=== PATIENT | male | born 1950 | race Caucasian/White ===

== ENCOUNTER 2019-06-17 05:32 | Inpatient (IN) ==
[2019-06-17] MEDS: SODIUM CHLORIDE 0.9% 1000ML 1,000 ML IV SCH ×3 (06:15→21:32)
--- NOTE | 2019-06-17 06:27 | XRay Report ---
XR chest 1V portable HISTORY: 69 years-old Male ams acute fever with altered mental status COMPARISON: Chest radiograph 07/29/2018 TECHNIQUE: Portable AP view of the chest FINDINGS: Heart is mildly enlarged, unchanged. No pneumothorax, pleural effusion, lobar airspace consolidation or overt pulmonary edema. Mild unchanged likely chronic interstitial coarsening. Healed remote left c lavicular fracture. Mild degenerative changes of the shoulders and spine. IMPRESSION: Cardiomegaly without acute process. The above report was generated using voice recognition software. It may contain grammatical, syntax o r spelling errors. Electronically signed by: Jan Man M.D. 06/17/2019 6:25 AM
[2019-06-17 06:39] LABS: Basophils # (auto) 0.04 K/uL (0-0.2); Basophils % (auto) 0.2 %; Hematocrit (blood only) 34.9 % (42-52); Immature Granulocytes # (auto) 0.15 K/uL (0.00-0.02); Immature Granulocytes % (auto) 0.9 %; Lymphocytes % (auto) 4.3 %; Mean Corpuscular Hgb Conc 37.2 g/dL (32-36); Mean Corpuscular Volume 89.9 fL (80-100); Mean Platelet Volume 9.8 fL (7.4-10.4); Monocytes # (auto) 0.52 K/uL (0.11-0.59); Monocytes % (auto) 3.2 %; Neutrophils # (auto) 14.99 K/uL (1.4-6.5); Neutrophils % (auto) 91.4 %; Platelet Count 229 K/uL (130-400); RDW Coefficient of Variation 12.8 % (11.5-14.5); RDW Standard Deviation 41.7 fL (36.4-46.3); Red Blood Count 3.88 M/uL (4.7-6.1)
--- NOTE | 2019-06-17 06:49 | CT Scan Report ---
CT head/brain wo con CLINICAL HISTORY: 69 years-old Male with ams. Acutely altered mental status TECHNIQUE: Multiple axial CT images of the head were obtained without contrast. A dose lowering tech nique was utilized adhering to the principles of ALARA. CT DOSE: 537.48 mGy.cm COMPARISON: None. FINDINGS: No acute intracranial hemorrhage, midline shift, intracranial mass, hydrocephalus, territorial ischem ia or abnormal extra-axial collection. Mild age-related involutional changes with ex vacuo ventriculo megaly. Cerebral vascular calcifications are noted. Study is mildly motion degraded. Minimal ill-defi elayne white matter hypodensities are suggestive of probable chronic microvascular ischemic changes. The calvarium is intact. Minimal mucosal thickening about the right sphenoid and left ethmoid sinuse s. Mastoid air cells are clear. Soft tissues and orbits appear unremarkable. IMPRESSION: No acute intracranial abnormality. The above report was generated using voice recognition software. It may contain grammatical, syntax o r spelling errors. Electronically signed by: Jan Man M.D. 06/17/2019 6:47 AM
[2019-06-17 06:56] LABS: Alanine Aminotransferase 64 U/L (12-78); Albumin Level 2.8 gm/dl (3.4-5.0); Aspartate Aminotransferase 49 U/L (15-37); BUN Creatinine Ratio 23.1 (10-20); Blood Urea Nitrogen 22 mg/dl (7-18); Calcium 8.8 mg/dl (8.5-10.1); Carbon Dioxide 20 mmol/L (21-32); Chloride 91 mmol/L (98-107); Creatinine Clr Calc Pharmacy 84.7 ml/min; Est GFR (African American) 96.7; Est GFR (Non-African American) 83.5; Glucose 110 mg/dl (70-99); Magnesium 1.6 mg/dl (1.8-2.4); Potassium 3.3 mmol/L (3.5-5.1); Sodium 124 mmol/L (136-145)
[2019-06-17 07:01] LABS: Acetaminophen < 2 ug/ml (10-30); Salicylate 8.1 mg/dl (2.8-20)
[2019-06-17 07:07] LABS: Albumin Globulin Ratio 0.7 (0.9-2); Alkaline Phosphatase 108 U/L (45-117); Bilirubin,Total 0.9 mg/dl (0.2-1); Globulin 4.2 gm/dl (2.5-4.0); Troponin I < 0.015 ng/ml (0-0.045)
[2019-06-17 07:36] LABS: Lyme Ab IgG w/WB Rflx Negative (Negative); Lyme Ab IgM w/WB Rflx Negative (Negative)
[2019-06-17] MEDS ORDERED: MAGNESIUM SULFATE / D5W 1 GM/100 ML BAG IV ONE (07:37)
[2019-06-17 09:39] LABS: Appearance Urine Clear (Clear); Bacteria Urine Automated Negative (Negative); Bilirubin Urine Negative (Negative); Blood Urine Negative (Negative); Color Urine Dark Yellow; Glucose Urine UA Negative (Negative); Ketones Urine 1+ (Negative); Leukocyte Esterase Urine Negative (Negative); Nitrite Urine Negative (Negative); Protein Urine 1+ (Negative); RBC Urine Automated 0-4 /hpf (0-4); Specific Gravity Urine 1.021 (1.000-1.030); Urobilinogen Urine Negative (Negative)
[2019-06-17 10:22] LABS: Amphetamines+Metham, Urine Neg (Neg); Barbiturates, Urine Neg (Neg); Benzodiazepine, Urine Neg (Neg); Cocaine, Urine Neg (Neg); MDMA (Ecstacy), Urine Neg (Neg); Methadone, Urine Neg (Neg); Opiate, Urine Neg (Neg); Phencyclidine, Urine Neg (Neg)
[2019-06-17] MEDS ORDERED: ONDANSETRON INJ 2 MG/ML 2 ML VIAL IV PRN (11:39)
[2019-06-17] MEDS: DOXYCYCLINE HYCLATE 100 MG in DEXTROSE 5% 100 ML IV SCH ×2 (12:32→23:27)
[2019-06-17] MEDS ORDERED: LORazepam 1 MG/2 ML VIAL IV PRN (12:38)
[2019-06-17] MEDS ORDERED: MULTI-VITAMIN INFUSION 10 ML, THIAMINE HCL 100 MG, FOLIC ACID 1 MG in SODIUM CHLORIDE 0... IV SCH (12:45)
[2019-06-17] MEDS ORDERED: METOPROLOL TARTRATE 1 MG/ML VIAL IV PRN (13:03)
[2019-06-17] MEDS ORDERED: VERAPAMIL HCL 120 MG TABCR PO ONE (13:04)
[2019-06-17] MEDS: THIAMINE HCL 100 MG in SYRINGE 9 ML IV SCH (13:11)
--- NOTE | 2019-06-17 13:50 | History & Physical Report ---
Date of Service June 17, 2019 Assessment & Plan (1) Encephalopathy: Concern for metabolic encephalopathy from infectious etiologies such as a tickborne illness. Because his symptoms seem to begin after his tick bite will be started on IV doxycycline while waiting on confirmatory testing for tickborne illnesses. Urine culture and blood cultures are pending. Additional consideration could be toxic encephalopathy from his alcohol possibly withdrawal, Metabolic encephalopathy from hyponatremia, with his random urine sodium being 23, he may have SIADH of unknown stimulus (2) Atrial fibrillation with rapid ventricular response: Patient is a history of atrial fibrillation was actually discharged at one point time on Xarelto. For whatever reason he is refused to take Xarelto was supposed to discuss with his primary care physician. He is in atrial fibrillation at this point time, said vas score is 2 at this point time I will start full dose Lovenox therapy discussed further signs of antic regulation in the future once his medical condition is more stabilized (3) Acute hyponatremia: Patient replaced on a fluid restriction we will follow his sodium for hopefully a very slow rise affect his urine osmolality is elevated and serum osmolality is decreased he did not have significant loom changer time we may involve nephrology (4) Hypertension: Patient typically takes verapamil at bedtime this is an unusual dosage for atrial fibrillation control will maintain this medicine changed to every morning with an augmented dose on 06/17 (5) Electrolyte abnormality: Patient potassium magnesium will be augmented magnesium was given in the emergency department (6) Tick bite: As mentioned the patient did have a tick bite there are pending serologies sent intravenous doxycycline is being administered at this time (7) Alcohol use: Patient does have alcohol use is felt to be mild to moderate by family, his tachycardia ready complexion and make me concern for alcohol withdrawal he will be started on the alcohol withdrawal program protocol however not starting Neurontin at this point time because of the unclear nature of his confusion. We will attempt to control his atrial fibrillation with rate controlling agents if it looks like he persist continues to progress towards more significant alcohol withdrawal we will add Neurontin back (8) DVT prophylaxis: Therapeutic dose Lovenox is used for DVT prevention History of Present Illness Primary Care Provider: Troy Rahman MD 69-year-old male brought to the ER by his after having approximately 10 days of waxing and waning intermittent confusion and low-grade temperatures. The relates that this began shortly after he received tick bite in [place] to his right leg. They then traveled to [place] where they have a vacation home and he had a variable week with low-grade temperatures just feeling poorly and not being himself. This morning he had a fall at home onto his right side was confused had a low-grade temperature was brought to the ER. His initial evaluation and leukocytosis with a white count of 16,000 marked hyponatremia with a sodium of 124 hypokalemia with potassium 3.3 magnesium 1.6 renal function was intact and he did not have a significant anion gap. Screening was negative head CT negative chest x-ray negative. Patient does drink occasional alcohol although family denies is a significant amount. He has had no recent issues with coughs sore throat runny nose earaches headaches neck pain diarrhea nausea vomiting or dysuria. He has complained of some intermittent visual blurriness. Allergies Allergy/AdvReac Type Severity Reaction Status Date / Time amlodipine Allergy RASH & Verified 06/17/19 06:16 SWOLLEN LEGS benazepril Allergy RASH & Verified 06/17/19 06:16 SWOLLEN LEGS--TAKES LISINOPRIL AT HOME shellfish derived Allergy Unknown Verified 06/17/19 06:18 Home Medications Home Medications Medication Instructions Recorded Confirmed Type ascorbic acid (vitamin C) 500 mg PO HS 07/29/18 06/17/19 History aspirin [Aspirin Low Dose] 81 mg PO QAM 07/29/18 06/17/19 History glucosamine-chondroitin 1 dose PO AMPM 07/29/18 06/17/19 History lisinopril-hydrochlorothiazide 1 tab PO HS 07/29/18 06/17/19 History multivitamin [Multiple Vitamins] 1 tab PO QAM 07/29/18 06/17/19 History betamethasone dipropionate 1 applic TOPICAL BID 06/17/19 06/17/19 History verapamil 120 mg PO HS 06/17/19 06/17/19 History vit C-E-zinc [id number] 1 tab PO QAM 06/17/19 06/17/19 History [Ocuvite Eye Health] Past Med/Surg History Family History Father Hypertension Social History Preferred Language: Croatian Communication Ability: Effective Managed Care Liaison Required: No Beliefs That Will Affect Care: None Current Living Situation: Spouse Other Information That Helps Us Care for You: No Feels Safe at Home: Yes Safety Concerns: Feels Safe At This Time Smoking Status: Former smoker Hx Alcohol Use: Yes Alcohol type: beer and wine Hx Substance Use: No Review of Systems Review of Systems: ROS: Patient can hold casual conversation but on confrontational testing does exhibit his confusion No double vision or visual field loss, complains of blurry vision bilaterally No problems with speech or swallowing No palpitations, chest pain or pressure No Wheezing or breathing issues No abdominal pain nausea vomiting diarrhea changes in appetite or weight No burning urine urine frequency or changes in color No focal joint pain or muscle pain This is some discoloration to his bilateral knees question if from bruising No other physical signs of bruising or bleeding No focused back pain or numbness or loss of strength Intermittent confusion Physical Exam Physical Exam: The patient appeared well nourished and normally developed. He is ready complected Vital signs as documented. He developed a tachycardia and is afebrile with rapid ventricular response Head exam is unremarkable. normocephalic, atraumatic Ophthalmologic exam shows bilateral cataracts no large intraocular changes noted Neck is without jugular venous distension, thyromegaly, or lymphademopathy Lungs are clear to auscultation and percussion. Cardiac exam reveals irregular and tachycardic. First and second heart sounds normal. Abdominal exam reveals normal bowel sounds, no masses, no organomegaly Extremities are nonedematous and both pedal pulses are present Neurologic exam is A&Ox2, no focal deficits, strength is equal bilateral Psychologically seems anxious Skin is warm Dry with bruises about his knees bilaterally Results & Data Vital Signs (Past 12 Hours) Vital Signs Temp Pulse Pulse Resp BP BP Pulse Ox 06/17/19 12:11 124 H 06/17/19 12:00 36.8 C 121 H 18 134/82 91 06/17/19 11:39 36.8 C 88 18 134/82 06/17/19 10:52 115 H 20 120/83 99 06/17/19 09:16 104 H 18 123/82 99 06/17/19 07:34 37.1 C 107 H 18 102/72 98 06/17/19 05:48 37.9 C H 110 H 20 129/69 95 Laboratory Results Sodium 124 potassium 3.3 magnesium 1.6 TSH normal, random urine sodium is [address] head is unremarkable for intracranial changes Chest x-ray is without intrathoracic abnormalities with exception of mild cardiomegaly EKG shows atrial fibrillation ventricular rate in the 110-120 range Initial Lyme screen was negative PG Care Time/CCT Total # of Minutes Spent Total Time Spent with Patient: Total time spent is greater than 50% in coordination of care (as documented) at patient's floor/unit and/or counseling patient:
[2019-06-17] MEDS ORDERED: GABAPENTIN 1200MG ALCOHOL WITHDRAWAL LOAD PO STA (15:49)
[2019-06-17] MEDS ORDERED: GABAPENTIN 600 MG TAB PO SCH ×2 (16:30→22:30)
[2019-06-17 17:28] LABS: BUN Creatinine Ratio 19.9 (10-20); Calcium 8.3 mg/dl (8.5-10.1); Creatinine Clr Calc Pharmacy 88.5 ml/min; Est GFR (African American) 101.1; Est GFR (Non-African American) 87.2; Potassium 3.4 mmol/L (3.5-5.1)
[2019-06-17 19:14] LABS: INR 1.4 (0.9-1.1); Partial Thromboplastin Ratio 1.4; Partial Thromboplastin Time 38.1 Seconds (21.0-31.0); Prothrombin Time 13.9 Seconds (9.0-12.0)
[2019-06-17] MEDS ORDERED: ENOXAPARIN 1 MG/KG SQ SCH (20:00)
[2019-06-17] MEDS ORDERED: SODIUM CHLORIDE 0.9% 1000ML 250 ML IV ONE (20:52)
[2019-06-17] MEDS ORDERED: LISINOPRIL/HCTZ 20/25MG 1 TAB PO SCH (21:00)
[2019-06-17] MEDS ORDERED: VERAPAMIL HCL 120 MG TABCR PO SCH (21:00)
[2019-06-17] MEDS: ENOXAPARIN 80 MG/0.8 ML SYR SQ SCH (21:36)
[2019-06-18] MEDS: SODIUM CHLORIDE 0.9% 1000ML 1,000 ML IV SCH ×3 (03:17→20:43)
[2019-06-18 07:14] LABS: Hematocrit (blood only) 33.7 % (42-52); Hemoglobin 11.9 g/dL (14.0-18.0); Mean Corpuscular Hgb Conc 35.3 g/dL (32-36); Mean Corpuscular Volume 91.8 fL (80-100); Mean Platelet Volume 10.8 fL (7.4-10.4); Platelet Count 225 K/uL (130-400); RDW Coefficient of Variation 13.2 % (11.5-14.5); RDW Standard Deviation 44.4 fL (36.4-46.3); Red Blood Count 3.67 M/uL (4.7-6.1); White Blood Count 12.27 K/uL (4.8-10.8)
[2019-06-18 07:48] LABS: BUN Creatinine Ratio 27.4 (10-20); Calcium 8.3 mg/dl (8.5-10.1); Creatinine Clr Calc Pharmacy 89.5 ml/min; Est GFR (African American) 101.6; Est GFR (Non-African American) 87.6; Potassium 3.2 mmol/L (3.5-5.1)
[2019-06-18] MEDS ORDERED: POTASSIUM CHLORIDE 10 MEQ / 100ML WTR IV STA (07:58)
[2019-06-18] MEDS: MAGNESIUM SULFATE / D5W 1 GM/100 ML BAG IV SCH ×2 (08:47→10:00)
[2019-06-18] MEDS: POTASSIUM CHLORIDE / WTR 10 MEQ/100 ML PLCT IV SCH ×3 (08:48→11:11)
[2019-06-18] MEDS: VERAPAMIL HCL 120 MG TABCR PO SCH (08:59)
[2019-06-18] MEDS: ASPIRIN 81 MG ECTAB PO SCH (08:59)
[2019-06-18] MEDS: MULTIVITAMIN TAB PO SCH (09:00)
[2019-06-18] MEDS ORDERED: ENOXAPARIN INJ 40 MG/0.4 ML SYR SQ SCH (09:00)
[2019-06-18] MEDS: POTASSIUM CHLORIDE 20 MEQ TABCR PO SCH ×2 (09:00→20:40)
[2019-06-18] MEDS: THIAMINE HCL 100 MG in SYRINGE 9 ML IV SCH (09:01)
[2019-06-18] MEDS: ENOXAPARIN 80 MG/0.8 ML SYR SQ SCH ×2 (09:03→20:43)
[2019-06-18] MEDS: DOXYCYCLINE HYCLATE 100 MG in DEXTROSE 5% 100 ML IV SCH ×2 (12:18→23:59)
[2019-06-18] MEDS ORDERED: GABAPENTIN 600 MG TAB PO SCH (14:30)
[2019-06-18] MEDS ORDERED: LISINOPRIL 20 MG TAB PO STA (14:39)
--- NOTE | 2019-06-18 14:40 | Hospitalist Progress Note ---
Date of Service June 18, 2019 Assessment & Plan (1) Encephalopathy: initial concern for metabolic encephalopathy from infectious etiologies such as a tickborne illness. Because his symptoms seem to begin after his tick bite he was started on doxycycline while waiting on confirmatory testing for tickborne illnesses. Urine culture and blood cultures are pending. He has had dramatic improvement over the first 24 hours Additional consideration could be toxic encephalopathy from his alcohol possibly withdrawal, he had untoward side effect to gabapentin this was now stopped Metabolic encephalopathy from hyponatremia, with his random urine sodium being 23, he may have SIADH which could be estimated by his infection. His sodium has increased to 129 his mental status is improved dramatically (2) Atrial fibrillation with rapid ventricular response: Patient is a history of atrial fibrillation was actually discharged at one point time on Xarelto. For whatever reason he is refused to take Xarelto was supposed to discuss with his primary care physician. He is in atrial fibrillation at this point time, Long vas score is 2 he was started on full dose Lovenox therapy His verapamil was changed to the morning dosing time (3) Acute hyponatremia: Patient sodium is improved he will remain on fluid restriction (4) Hypertension: Patient's antihypertensives will be transition to morning his diuretic will be stopped (5) Electrolyte abnormality: Patient potassium magnesium continue to require augmentation (6) Tick bite: As mentioned the patient did have a tick bite there are pending serologies sent intravenous doxycycline is being administered at this time (7) Alcohol use: Patient does have significant alcohol use however given his untoward side effect of Neurontin he will be only with PRN lorazepam dosing is markedly clear not tremulous or anxious on 06/18 (8) DVT prophylaxis: Therapeutic dose Lovenox is used for DVT prevention Subjective this pt is markedly improved, he has returned to intact mental status. no fevers, did have some side affects to elevated doses of gabapentin Review of Systems Review of Systems: ROS: well nourished well developed. No double vision blurry vision No problems with speech or swallowing No palpitations, chest pain or pressure No Wheezing or breathing issues No abdominal pain nausea vomiting diarrhea changes in appetite or weight No burning urine urine frequency or changes in color No focal joint pain or muscle pain He is a very ready complexion and discoloration of his lower legs No unusual bruising or bleeding No focused back pain or numbness or loss of strength No changes in memory or confusion Physical Exam Physical Exam: The patient appeared well nourished and normally developed. Vital signs as documented. Head exam is unremarkable. normocephalic, atraumatic Neck is without jugular venous distension, thyromegaly, or lymphademopathy Lungs are clear to auscultation and percussion. Cardiac exam reveals Rhythm is regular. First and second heart sounds normal. Abdominal exam reveals normal bowel sounds, no masses, no organomegaly Extremities are nonedematous and both pedal pulses are present Neurologic exam is A&Ox3, no focal deficits, strength is equal bilateral Psychologically seems neither anxious or depressed Skin is warm Dry without bruises or lesions Results & Data Vital Signs (Past 12 Hours) Vital Signs Temp Pulse Pulse Resp BP Pulse Ox 06/18/19 11:46 36.5 C 94 H 18 126/83 98 06/18/19 07:54 56 L 06/18/19 07:15 36.5 C 83 16 115/74 100 06/18/19 03:20 36.4 C L 74 16 120/81 93 PG Care Time/CCT Total # of Minutes Spent Total Time Spent with Patient: Total time spent is greater than 50% in coordination of care (as documented) at patient's floor/unit and/or counseling patient:
[2019-06-18] MEDS ORDERED: COUGH DROP (SUGAR FREE) LOZ 24 LOZ/1 BOX BUCCAL PRN (20:27)
--- NOTE | 2019-06-18 23:11 | Emergency Department Note ---
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 He complains of intermittent fevers over the past month. The patient complains of a cough and a decreased appetite. He denies any diarrhea, SOB, nausea/vomiting, abdominal pain, headache, chest pain, SOB, dizziness, and lightheadedness. The patient reports that he was taken off of Metoprolol and switched to Verapamil by his PCP about a month ago. Pt states he did sustain a recent tick bite but hasn't noticed any rash. No recent travel, no sick contacts. States no hx of being immunocompromised. States his fevers have been as high as 103 at home but then go away. When asked about atrial fibrillation as was seen on tele monitor, pt states he has had that prior but doesn't know if he is always in a.fib or not. Pt states he takes ASA daily, no other anticoagulation. Denies any palpitations or sense of racing at this time. Home Medications Home Medications Medication Instructions Recorded Confirmed Type ascorbic acid (vitamin C) 500 mg PO 07/29/18 06/17/19 History aspirin [Aspirin Low Dose] 81 mg PO QAM 07/29/18 06/17/19 History glucosamine-chondroitin 1 dose PO AMPM 07/29/18 06/17/19 History lisinopril-hydrochlorothiazide 1 tab PO 07/29/18 06/17/19 History multivitamin [Multiple Vitamins] 1 tab PO QAM 07/29/18 06/17/19 History betamethasone dipropionate 1 applic TOPICAL BID 06/17/19 06/17/19 History verapamil 120 mg PO 06/17/19 06/17/19 History vit C-E-zinc [id number] 1 tab PO QAM 06/17/19 06/17/19 History [[facility]] Allergies Allergy/AdvReac Type Severity Reaction Status Date / Time amlodipine Allergy RASH & Verified 06/17/19 06:16 SWOLLEN LEGS benazepril Allergy RASH & Verified 06/17/19 06:16 SWOLLEN LEGS--TAKES LISINOPRIL AT HOME shellfish derived Allergy Unknown Verified 06/17/19 06:18 Past Med/Surg History Family History Father Hypertension Social History Preferred Language: Mongolian Communication Ability: Effective Hip Hop Performers Required: No Beliefs That Will Affect Care: None Current Living Situation: Spouse Other Information That Helps Us Care for You: No Feels Safe at Home: Yes Safety Concerns: Feels Safe At This Time Smoking Status: Former smoker Hx Alcohol Use: Yes Alcohol type: beer and wine Hx Substance Use: No Review of Systems See HPI for pertinent positives & negatives. Other (HPI limited secondary to altered mental status.) Physical Exam Vital Signs Vital Signs - 24 hr 06/17/19 05:48 Temperature 100.2 F H Temperature Source Oral Sepsis Recent Fever Within 48 Hours Yes Sepsis New/Unexplained Change in Mental Status Yes Sepsis Action Taken by Nursing No Action Required Pulse Rate 110 H Respiratory Rate 20 Blood Pressure 129/69 Blood Pressure Mean 89 Pulse Oximetry 95 Oxygen Delivery Method Room Air GENERAL: alert, well appearing, well nourished, no distress, non-toxic EYE EXAM: normal conjunctiva, PERRL and EOM's grossly intact, no nystagmus OROPHARYNX: no exudate, no erythema, lips, buccal mucosa, and tongue normal and mucous membranes are mildly dry NECK: supple, no nuchal rigidity, no adenopathy, non-tender LUNGS: Clear to auscultation. Normal chest wall mechanics, no w/r/r HEART: no murmurs, S1 normal and S2 normal. Tachycardic and irregular rate at 112. Appear to be A-fib on telemetry. ABDOMEN: abdomen soft, non-tender, normo-active bowel sounds, no masses, no rebound or guarding. BACK: Back is symmetrical on inspection and there is no deformity, no midline tenderness, no CVA tenderness. SKIN: no rashes and no bruising, no petechaie UPPER EXTREMITIES: upper extremities are grossly normal. FROM, nml pulses b/l, no joint effusion. LOWER EXTREMITIES: No pitting edema. FROM, nml pulses b/l, no joint effusion. NEURO EXAM: Normal sensorium, cranial nerves II-XII grossly intact, normal speech, no gross weakness of arms, no gross weakness of legs. The patient was aware of his location, the current President, and the month, but not the year. No facial droop, no ataxia. Course 0537: The patient was evaluated in room B10. A complete history and physical exam was performed. 0715: Pt and updated on all results and we discussed additional inpatient tx needed. Pt was hesitant to agree to this and states "I'm not a good patient" and nods in agreement. 0730: Case discussed with Dr. Hancock for inpt mgmt. UA still pending at this time. Administered Medications Aspirin (Ecotrin Ectab) 81 mg PO QAM TOMMIE Stop: 07/18/19 08:59 Last Admin: 06/18/19 08:59 Dose: 81 mg Documented by: [id number] Enoxaparin Sodium (Lovenox) 80 mg SQ Q12H TOMMIE Stop: 07/17/19 20:29 Last Admin: 06/18/19 20:43 Dose: Not Given Documented by: [id number] Admin: 06/18/19 09:03 Dose: Not Given Documented by: [id number] Admin: 06/17/19 21:36 Dose: 80 mg Documented by: [id number] Sodium Chloride (Nss 1000ml) 1,000 mls @ 125 mls/hr IV .Q8H TOMMIE Stop: 07/17/19 05:44 Last Admin: 06/18/19 20:43 Dose: 125 mls/hr Documented by: [id number] Infusion: 06/18/19 20:18 Dose: 125 mls/hr Documented by: [id number] Admin: 06/18/19 12:18 Dose: 125 mls/hr Documented by: [id number] Infusion: 06/18/19 11:17 Dose: 125 mls/hr Documented by: [id number] Admin: 06/18/19 03:17 Dose: 125 mls/hr Documented by: [id number] Infusion: 06/18/19 03:17 Dose: 125 mls/hr Documented by: [id number] Admin: 06/17/19 21:32 Dose: 125 mls/hr Documented by: [id number] Infusion: 06/17/19 21:32 Dose: 125 mls/hr Documented by: [id number] Admin: 06/17/19 11:47 Dose: 125 mls/hr Documented by: [id number] Infusion: 06/17/19 11:47 Dose: 125 mls/hr Documented by: [id number] Admin: 06/17/19 06:15 Dose: 125 mls/hr Documented by: [id number] Doxycycline Hyclate 100 mg/ (Dextrose) 110 mls @ 50 mls/hr IV Q12H [facility] Stop: 07/01/19 11:59 Last Infusion: 06/18/19 14:33 Dose: 0 mls/hr Documented by: [id number] Admin: 06/18/19 12:18 Dose: 50 mls/hr Documented by: [id number] Infusion: 06/18/19 01:48 Dose: 0 mls/hr Documented by: [id number] Admin: 06/17/19 23:27 Dose: 50 mls/hr Documented by: [id number] Infusion: 06/17/19 16:51 Dose: 0 mls/hr Documented by: [id number] Admin: 06/17/19 12:32 Dose: 50 mls/hr Documented by: [id number] Thiamine HCl 100 mg/ Syringe 10 mls @ 2 mls/hr IV DAILY [facility] Stop: 07/17/19 12:37 Last Admin: 06/18/19 09:01 Dose: 2 mls/hr Documented by: [id number] Admin: 06/17/19 13:11 Dose: 2 mls/hr Documented by: [id number] Menthol (Nice) 1 cristina BUCCAL NOW PRN PRN Reason: Cough Stop: 07/18/19 20:26 Last Admin: 06/18/19 20:39 Dose: 1 cristina Documented by: [id number] Metoprolol Tartrate (Lopressor) 5 mg IV Q4 PRN PRN Reason: sbp> 185, dbp >95, HR >120 Stop: 07/17/19 13:02 Last Admin: 06/17/19 13:40 Dose: 5 mg Documented by: [id number] Multivitamins (Multivitamin Tab) 1 tab PO QAM [facility] Stop: 07/18/19 08:59 Last Admin: 06/18/19 09:00 Dose: 1 tab Documented by: [id number] Potassium Chloride (Klor-Con M20) 20 meq PO BID [facility] Stop: 06/19/19 09:01 Last Admin: 06/18/19 20:40 Dose: 20 meq Documented by: [id number] Admin: 06/18/19 09:00 Dose: 20 meq Documented by: [id number] Verapamil HCl (Calan Sr) 120 mg PO DAILY [facility] Stop: 07/18/19 08:59 Last Admin: 06/18/19 08:59 Dose: 120 mg Documented by: [id number] Discontinued Medications Gabapentin (Neurontin) 1,200 mg PO TODAY@1630 [facility] Stop: 06/17/19 16:31 Last Admin: 06/17/19 16:55 Dose: 1,200 mg Documented by: [id number] Gabapentin (Neurontin) 600 mg PO Q6H [facility] Last Admin: 06/17/19 21:31 Dose: Not Given Documented by: [id number] Lisinopril/HCTZ (Prinzide 20/25mg) 1 tab PO HS [facility] Stop: 07/17/19 20:59 Last Admin: 06/17/19 21:30 Dose: Not Given Documented by: [id number] Magnesium Sulfate/Dextrose (Magnesium Sulfate / D5w) 1 gm in 100 mls @ 100 mls/hr IV ONE ONE Stop: 06/17/19 08:36 Last Infusion: 06/17/19 09:16 Dose: 0 mls/hr Documented by: [id number] Admin: 06/17/19 08:11 Dose: 100 mls/hr Documented by: [id number] Multivitamins 10 ml/ Thiamine HCl 100 mg/ Folic Acid 1 mg/Sodium Chloride 1,011.2 mls @ 500 mls/hr IV .Q2H2M [facility]OMMIE Stop: 06/17/19 14:46 Last Infusion: 06/17/19 15:37 Dose: 0 mls/hr Documented by: [id number] Admin: 06/17/19 13:11 Dose: 500 mls/hr Documented by: [id number] Sodium Chloride (Nss 1000ml) 250 mls @ 999 mls/hr IV .Q16M ONE Stop: 06/17/19 21:07 Last Infusion: 06/17/19 21:48 Dose: 0 mls/hr Documented by: [id number] Admin: 06/17/19 21:20 Dose: 999 mls/hr Documented by: [id number] Magnesium Sulfate/Dextrose (Magnesium Sulfate / D5w) 1 gm in 100 mls @ 100 mls/hr IV Q1H [facility]OM[facility] Stop: 06/18/19 10:29 Last Infusion: 06/18/19 11:11 Dose: 0 mls/hr Documented by: [id number] Admin: 06/18/19 10:00 Dose: 100 mls/hr Documented by: [id number] Infusion: 06/18/19 09:47 Dose: 100 mls/hr Documented by: [id number] Admin: 06/18/19 08:47 Dose: 100 mls/hr Documented by: [id number] Potassium Chloride (K Tavo / Wtr) 10 meq in 100 mls @ 100 mls/hr IV Q1H [facility]OM[facility]E Stop: 06/18/19 11:44 Last Infusion: 06/18/19 12:19 Dose: 0 mls/hr Documented by: [id number] Admin: 06/18/19 11:11 Dose: 100 mls/hr Documented by: [id number] Infusion: 06/18/19 11:00 Dose: 100 mls/hr Documented by: [id number] Admin: 06/18/19 10:00 Dose: 100 mls/hr Documented by: [id number] Infusion: 06/18/19 09:48 Dose: 100 mls/hr Documented by: [id number] Admin: 06/18/19 08:48 Dose: 100 mls/hr Documented by: [id number] Lisinopril (Zestril) 20 mg PO NOW STA Stop: 06/18/19 14:40 Last Admin: 06/18/19 17:01 Dose: 20 mg Documented by: [id number] Potassium Chloride (K Tavo / Wtr) 10 meq IV UD STA Stop: 06/18/19 07:59 Last Admin: 06/18/19 11:11 Dose: Not Given Documented by: [id number] Verapamil HCl (Calan Sr) 120 mg PO ONE ONE Stop: 06/17/19 13:05 Last Admin: 06/17/19 13:40 Dose: 120 mg Documented by: [id number] Medical Decision Making Differential Diagnosis Differential diagnoses includes but is not limited to toxic, metabolic, infectious, traumatic, cardiac, neurologic, hematologic, psychiatric and inflamm atory etiologies. Medical Records Attestation: I reviewed the patient's medical records. Home Medications Current Medication List: was personally reviewed by me Laboratory Data Attestation: I reviewed the patient's lab results. Result diagrams: 06/18/19 06:25 06/18/19 06:25 Lab Results 06/17/19 06/17/19 06/17/19 Range/Units 06:19 06:19 06:19 WBC 16.40 H (4.8-10.8) K/uL RBC 3.88 L (4.7-6.1) M/uL Hgb 13.0 L (14.0-18.0) g/dL Hct 34.9 L (42-52) % MCV 89.9 (80-100) fL MCH 33.5 (25-34) pg MCHC 37.2 H (32-36) g/dL RDW Std Deviation 41.7 (36.4-46.3) fL RDW Coeff of Melissa 12.8 (11.5-14.5) % Plt Count 229 (130-400) K/uL MPV 9.8 (7.4-10.4) fL Immature Gran % (Auto) 0.9 % Neut % (Auto) 91.4 % Lymph % (Auto) 4.3 % Potter % (Auto) 3.2 % Eos % (Auto) 0.0 % Baso % (Auto) 0.2 % Immature Gran # (Auto) 0.15 H (0.00-0.02) K/uL Neut # (Auto) 14.99 H (1.4-6.5) K/uL Lymph # (Auto) 0.70 L (1.2-3.4) K/uL Potter # (Auto) 0.52 (0.11-0.59) K/uL Eos # (Auto) 0.00 (0-0.5) K/uL Baso # (Auto) 0.04 (0-0.2) K/uL Absolute Nucleated RBC 0.00 (0-0) K/uL Nucleated RBC % (auto) 0.0 % Peripher Smr Path Cons Sodium 124 L (136-145) mmol/L Potassium 3.3 L (3.5-5.1) mmol/L Chloride 91 L (98-107) mmol/L Carbon Dioxide 20 L (21-32) mmol/L Anion Gap 12.0 H (3-11) BUN 22 H (7-18) mg/dl Creatinine 0.93 (0.6-1.4) mg/dl Est Cr Clr Drug Dosing 84.7 ml/min Est GFR ( Amer) 96.7 Est GFR (Non-Af Amer) 83.5 BUN/Creatinine Ratio 23.1 H (10-20) Glucose 110 H (70-99) mg/dl POC Glucose (70-99) Osmolality (280-300) mOsm/kg POC Lactic Acid Adrien (0.90-1.70) mmol/L Calcium 8.8 (8.5-10.1) mg/dl Magnesium 1.6 L (1.8-2.4) mg/dl Total Bilirubin 0.9 (0.2-1) mg/dl AST 49 H (15-37) U/L ALT 64 (12-78) U/L Alkaline Phosphatase 108 (45-117) U/L Ammonia 34.0 H (11-32) umol/L Troponin I < 0.015 (0-0.045) ng/ml Total Protein 7.0 (6.4-8.2) gm/dl Albumin 2.8 L (3.4-5.0) gm/dl Globulin 4.2 H (2.5-4.0) gm/dl Albumin/Globulin Ratio 0.7 L (0.9-2) Lipase 78 (73-393) U/L TSH 1.650 (0.300-4.500) uIu/ml Salicylates (2.8-20) mg/dl Acetaminophen (10-30) ug/ml Ethyl Alcohol mg/dL (0-3) mg/dl Lyme Disease IgG Ab (Negative) Lyme Disease IgM Ab (Negative) 06/17/19 06/17/19 06/17/19 Range/Units 06:19 06:19 06:19 WBC (4.8-10.8) K/uL RBC (4.7-6.1) M/uL Hgb (14.0-18.0) g/dL Hct (42-52) % MCV (80-100) fL MCH (25-34) pg MCHC (32-36) g/dL RDW Std Deviation (36.4-46.3) fL RDW Coeff of Melissa (11.5-14.5) % Plt Count (130-400) K/uL MPV (7.4-10.4) fL Immature Gran % (Auto) % Neut % (Auto) % Lymph % (Auto) % Potter % (Auto) % Eos % (Auto) % Baso % (Auto) % Immature Gran # (Auto) (0.00-0.02) K/uL Neut # (Auto) (1.4-6.5) K/uL Lymph # (Auto) (1.2-3.4) K/uL Potter # (Auto) (0.11-0.59) K/uL Eos # (Auto) (0-0.5) K/uL Baso # (Auto) (0-0.2) K/uL Absolute Nucleated RBC (0-0) K/uL Nucleated RBC % (auto) % Peripher Smr Path Cons Sodium (136-145) mmol/L Potassium (3.5-5.1) mmol/L Chloride (98-107) mmol/L Carbon Dioxide (21-32) mmol/L Anion Gap (3-11) BUN (7-18) mg/dl Creatinine (0.6-1.4) mg/dl Est Cr Clr Drug Dosing ml/min Est GFR ( Amer) Est GFR (Non-Af Amer) BUN/Creatinine Ratio (10-20) Glucose (70-99) mg/dl POC Glucose (70-99) Osmolality (280-300) mOsm/kg POC Lactic Acid Adrien (0.90-1.70) mmol/L Calcium (8.5-10.1) mg/dl Magnesium (1.8-2.4) mg/dl Total Bilirubin (0.2-1) mg/dl AST (15-37) U/L ALT (12-78) U/L Alkaline Phosphatase (45-117) U/L Ammonia (11-32) umol/L Troponin I (0-0.045) ng/ml Total Protein (6.4-8.2) gm/dl Albumin (3.4-5.0) gm/dl Globulin (2.5-4.0) gm/dl Albumin/Globulin Ratio (0.9-2) Lipase (73-393) U/L TSH (0.300-4.500) uIu/ml Salicylates 8.1 (2.8-20) mg/dl Acetaminophen < 2 L (10-30) ug/ml Ethyl Alcohol mg/dL < 3.0 (0-3) mg/dl Lyme Disease IgG Ab Negative (Negative) Lyme Disease IgM Ab Negative (Negative) 06/17/19 06/17/19 06/17/19 Range/Units 06:19 06:20 06:22 WBC (4.8-10.8) K/uL RBC (4.7-6.1) M/uL Hgb (14.0-18.0) g/dL Hct (42-52) % MCV (80-100) fL MCH (25-34) pg MCHC (32-36) g/dL RDW Std Deviation (36.4-46.3) fL RDW Coeff of Melissa (11.5-14.5) % Plt Count (130-400) K/uL MPV (7.4-10.4) fL Immature Gran % (Auto) % Neut % (Auto) % Lymph % (Auto) % Potter % (Auto) % Eos % (Auto) % Baso % (Auto) % Immature Gran # (Auto) (0.00-0.02) K/uL Neut # (Auto) (1.4-6.5) K/uL Lymph # (Auto) (1.2-3.4) K/uL Potter # (Auto) (0.11-0.59) K/uL Eos # (Auto) (0-0.5) K/uL Baso # (Auto) (0-0.2) K/uL Absolute Nucleated RBC (0-0) K/uL Nucleated RBC % (auto) % Peripher Smr Path Cons Sodium (136-145) mmol/L Potassium (3.5-5.1) mmol/L Chloride (98-107) mmol/L Carbon Dioxide (21-32) mmol/L Anion Gap (3-11) BUN (7-18) mg/dl Creatinine (0.6-1.4) mg/dl Est Cr Clr Drug Dosing ml/min Est GFR ( Amer) Est GFR (Non-Af Amer) BUN/Creatinine Ratio (10-20) Glucose (70-99) mg/dl POC Glucose 118 H (70-99) Osmolality 254 L (280-300) mOsm/kg POC Lactic Acid Adrien 0.86 L (0.90-1.70) mmol/L Calcium (8.5-10.1) mg/dl Magnesium (1.8-2.4) mg/dl Total Bilirubin (0.2-1) mg/dl AST (15-37) U/L ALT (12-78) U/L Alkaline Phosphatase (45-117) U/L Ammonia (11-32) umol/L Troponin I (0-0.045) ng/ml Total Protein (6.4-8.2) gm/dl Albumin (3.4-5.0) gm/dl Globulin (2.5-4.0) gm/dl Albumin/Globulin Ratio (0.9-2) Lipase (73-393) U/L TSH (0.300-4.500) uIu/ml Salicylates (2.8-20) mg/dl Acetaminophen (10-30) ug/ml Ethyl Alcohol mg/dL (0-3) mg/dl Lyme Disease IgG Ab (Negative) Lyme Disease IgM Ab (Negative) Imaging Data Attestation: I personally reviewed and interpreted this imaging study as follows: My Impression: XR CHEST 1V: No cardiomegaly. No wide mediastinum. No focal consolidation. No pleural effusio n. No acute pulmonary edema. Radiologist's Impression: Radiology results as stated below per my review and the radiologist's interpretation: ECG Data Attestation: I personally reviewed and interpreted this ECG as follows: Indication: altered mental status Rate (beats per minute): 110 Rhythm: atrial fibrillation Findings: + other (normal axis, normal QRS and QTC); no ST elevation Blood Pressure Blood Pressure Findings: Normal blood pressure Blood Pressure Disposition: did not require urgent referral MDM Narrative Pt here with intermittent FUO without clear etiology. Pt does admit to recent tick bite, no hx of Lyme, initial Lyme test here negative. Ehrlichia is a send out lab, and lab results otherwise not strongly suggestive of anaplasmosis. Fever seems unrelated to recent medication change. Pt found to have a.fib with RVR which appears new, unknown onset. Given pt takes only baby ASA, slightly increased risk of TIA/CVA also. Ct head negative. Rate improved with IVF given initially for mild clinical dehydration. Hyponatremia noted. This was seen previously on review of EMR, however no clear etiology was identified. Pt afebrile here and only question he was confused on was date/time. Given lack of fever here, I discussed with them possible consideration for meningitis/encephalitis, but did not feel it warranted emergent LP at this time given other possibilities that needed further investigation. Pt hemodynamically stable throughout. All results and possible ddx discussed with pt and at bedside. No other evidence of acute infectious etiology, cxr unremarkable, no GI symptoms, no URI symptoms, UA pending at time of discussed with hospitalist but no recent symptoms. No hx of rheumatologic dz, malignancy, or HIV. No evidence of bacteremia/sepsis. Impression & Plan Fever of unknown origin (FUO), Atrial fibrillation with rapid ventricular response, Tick bite, Acute hyponatremia, Leukocytosis, Confusion, Hypokalemia Discharge Plan Visit Data *Final* Discharge Date/Time: 06/17/19 11:06 Chief Complaint: Altered Mental Status Stated Complaint: altered mental status ED Provider: Michelle Figueroa Discharge Problem: Fever of unknown origin (FUO), Atrial fibrillation with rapid ventricular response, Tick bite, Acute hyponatremia, Leukocytosis, Confusion, Hypokalemia Patient Disposition: Admitted As Inpatient Discharge Instructions Interventions: ED Discharge Assessment Last Done: 06/17/19 11:06 Discharge Problem: Tick bite Qualifiers: Encounter type: initial encounter Qualified Code(s): W57.XXXA - Bitten or stung by nonvenomous insect and other nonvenomous arthropods, initial encounter Leukocytosis Qualifiers: Leukocytosis type: unspecified Qualified Code(s): D72.829 - Elevated white blood cell count, unspecified The scribe's documentation has been prepared under my direction and personally reviewed by me in its entirety. I confirm that the note above accurately reflects all work, treatment, procedures, and medical decision making performed by me.
[2019-06-19] MEDS: SODIUM CHLORIDE 0.9% 1000ML 1,000 ML IV SCH (04:13)
[2019-06-19 06:28] LABS: Hematocrit (blood only) 33.5 % (42-52); Hemoglobin 11.7 g/dL (14.0-18.0); Mean Corpuscular Hgb Conc 34.9 g/dL (32-36); Mean Corpuscular Volume 93.6 fL (80-100); Mean Platelet Volume 10.5 fL (7.4-10.4); Platelet Count 250 K/uL (130-400); RDW Coefficient of Variation 13.1 % (11.5-14.5); RDW Standard Deviation 45.2 fL (36.4-46.3); Red Blood Count 3.58 M/uL (4.7-6.1); White Blood Count 8.59 K/uL (4.8-10.8)
[2019-06-19 07:11] LABS: BUN Creatinine Ratio 24.1 (10-20); Calcium 8.4 mg/dl (8.5-10.1); Creatinine Clr Calc Pharmacy 90.6 ml/min; Est GFR (African American) 102.1; Est GFR (Non-African American) 88.1; Potassium 3.7 mmol/L (3.5-5.1)
[2019-06-19] MEDS: MULTIVITAMIN TAB PO SCH (08:43)
[2019-06-19] MEDS: VERAPAMIL HCL 120 MG TABCR PO SCH (08:44)
[2019-06-19] MEDS: ENOXAPARIN 80 MG/0.8 ML SYR SQ SCH (08:44)
[2019-06-19] MEDS: ASPIRIN 81 MG ECTAB PO SCH (08:44)
[2019-06-19] MEDS: POTASSIUM CHLORIDE 20 MEQ TABCR PO SCH (08:45)
[2019-06-19] MEDS: THIAMINE HCL 100 MG in SYRINGE 9 ML IV SCH (08:45)
[2019-06-19] MEDS ORDERED: LISINOPRIL 20 MG TAB PO SCH (09:00)
[2019-06-19] MEDS ORDERED: GABAPENTIN 600 MG TAB PO SCH (18:30)
--- NOTE | 2019-06-19 18:53 | Discharge Summary ---
Date of Service June 19, 2019 Admission HPI Per Admitting Provider 69-year-old male brought to the ER by his after having approximately 10 days of waxing and waning intermittent confusion and low-grade temperatures. The relates that this began shortly after he received tick bite in [place] to his right leg. They then traveled to [place] where they have a vacation home and he had a variable week with low-grade temperatures just feeling poorly and not being himself. This morning he had a fall at home onto his right side was confused had a low-grade temperature was brought to the ER. His initial evaluation and leukocytosis with a white count of 16,000 marked hyp onatremia with a sodium of 124 hypokalemia with potassium 3.3 magnesium 1.6 renal function was intact and he did not have a significant anion gap. Screening was negative head CT negative chest x-ray negative. Patient does drink occasional alcohol although family denies is a significant amount. He has had no recent issues with coughs sore throat runny nose earaches headaches neck pain diarrhea nausea vomiting or dysuria. He has complained of some intermittent visual blurriness. Principal Diagnosis hyponatremia possible tic borne illness metabolic encephalopathy Discharge Exam Constitutional well developed and average body habitus Eyes no conjunctival abnormality and no scleral abnormality Neck normal visual inspection and trachea midline Respiratory normal respiratory effort; no respiratory distress Auscultation: lungs clear to auscultation bilaterally Cardiovascular RRR, no murmur, no edema Gastrointestinal (Abdomen) normal bowel sounds, soft, nontender, no hepatosplenomegaly Musculoskeletal no cyanosis or clubbing, extremities motor strength 5/5 Discharge Data Allergies Allergy/AdvReac Type Severity Reaction Status Date / Time amlodipine Allergy RASH & Verified 06/17/19 06:16 SWOLLEN LEGS benazepril Allergy RASH & Verified 06/17/19 06:16 SWOLLEN LEGS--TAKES LISINOPRIL AT HOME shellfish derived Allergy Unknown Verified 06/17/19 06:18 Consultations 06/17/19 08:17 ED Decision to Admit Stat Ordered Studies 06/17/19 05:45 CT head/brain wo con Stat Hospital Course (1) Encephalopathy: initial concern for metabolic encephalopathy from infectious etiologies such as a tickborne illness. Because his symptoms seem to begin after his tick bite he was started on doxycycline and will continue as an outpt while waiting on confirmatory testing for tickborne illnesses. Urine culture and blood cultures are negative at time of dishcarge He has had dramatic improvement over the first 24 hours Additional consideration could be toxic encephalopathy from his alcohol possibly withdrawal, he had untoward side effect to gabapentin this was now stopped, he relates to not drinking in excess over the last few weeks Metabolic encephalopathy from hyponatremia, with his random urine sodium being 23, he may have SIADH which could be estimated by his infection. His sodium has increased to 129 his mental status is improved dramatically (2) Atrial fibrillation with rapid ventricular response: Patient is a history of atrial fibrillation was actually discharged at one point time on Xarelto. For whatever reason he is refused to take Xarelto was supposed to discuss with his primary care physician. He is in atrial fibrillation at this point time, Long vas score is 2 he was started on full dose Lovenox therapy, he is not interested in pursing full dose anticoagulation at this time further discussion with his pcp His verapamil was changed to the morning dosing time (3) Acute hyponatremia: Patient sodium is improved he was counselled on avoiding free water excess (4) Hypertension: Patient's antihypertensives continue (5) Electrolyte abnormality: Patient potassium magnesium replete (6) Tick bite: As mentioned the patient did have a tick bite there are pending serologies sent intravenous doxycycline is being administered at this time (7) Alcohol use: Patient does have significant alcohol use however given his untoward side effect of Neurontin he will be only with PRN lorazepam dosing is markedly clear not tremulous or anxious on 06/18 Total Time Total Time Spent Total Time Spent (In Minutes): greater than 30 minutes were required to prepare discharge Discharge Plan Discharge Items Patient Disposition: Home - Self-Care Reason For Visit: ENCEPALOPATHY Discharge Diagnosis: low sodium level possible tic bite exposure Discharge Goals: Decrease discomfort Activity: Resume your previous activity Non-emergency contact: Primary Care Provider Call non-emergency contact if: you have any medication questions Follow-up/Referrals: Troy Rahman MD [Primary Care Provider] - 06/24/19 8:30 am (Please, follow up at Dr. Douglas Rahman's office with his associate, Dr. Lockett, on MondayJune 24 at 8:30 am. *If you need to change this appointment, call the office at [phone]. ) Diet: Regular Addtl Provider Instructions: please drink plenty of fluids, avoid excess plain water intake. limit alcohol intake to one or two servings a day please follow up with Dr Rahman's office within one week. Prescriptions: New doxycycline monohydrate 100 mg capsule 100 mg PO BID 10 Days Qty: 20 RF: 0 Continued ascorbic acid (vitamin C) 500 mg Capsule 500 mg PO HS RF: 0 multivitamin [Multiple Vitamins] Tablet 1 tab PO QAM RF: 0 aspirin [Aspirin Low Dose] 81 mg Tablet,Delayed Release (Dr/Ec) 81 mg PO QAM RF: 0 lisinopril-hydrochlorothiazide 20-25 mg Tablet 1 tab PO DAILY RF: 0 glucosamine-chondroitin 1,500-1,200 mg/30 mL Liquid 1 dose PO AMPM RF: 0 verapamil 120 mg tablet extended release 120 mg PO DAILY RF: 0 betamethasone dipropionate 0.05 % lotion 1 applic topical BID RF: 0 Ocuvite [facility] 50 mg-15 unit- 4.5 mg-2.5 mg Tablet,Chewable 1 tab PO QAM RF: 0 Stand-Alone Forms: [facility] Discharge Orders: Discharge Order (Routine); Ordered 06/19/19 Ordered By: Nate Hancock Admission Data Admit Date/Time: 06/17/19 09:17 Attending Provider: Nate Hancock Admit Provider: Nate Hancock Primary Care Provider: Troy Rahman Other Providers: Nate Hancock Service: Telemetry Other Interventions: Discharge Summary Assessment (RN) Last Done: 06/19/19 11:31 DC Date/Time DO NOT enter until pt leaves facility: 06/19/19 12:10
[2019-06-19 19:00] LABS: Albumin 2.6 G/DL (3.8-4.8); Alpha 1 Globulin 0.5 G/DL (0.2-0.3); Alpha 2 Globulin 0.7 G/DL (0.5-0.9); Beta-1-Globulin 0.4 G/DL (0.4-0.6); Beta-2-Globulin 0.4 G/DL (0.2-0.5); Gamma Globulin 1.1 G/DL (0.8-1.7); Monoclonal Protein Band 1 0.5 G/DL (NOT DETECTED); Monoclonal Protein Band 2 DNR G/DL (NOT DETECTED); Monoclonal Protein Band 3 DNR G/DL (NOT DETECTED); Total Protein 5.7 G/DL (6.2-8.3)
[2019-06-19 21:28] LABS: Ehrlichia chaff IgG Ab <1:64 (<1:64); Ehrlichia chaff IgM Ab <1:20 (<1:20)
[2019-06-21] MEDS ORDERED: GABAPENTIN 600 MG TAB PO SCH (06:30)
[2019-06-21 11:36] LABS: Creatinine Ur 84 MG/DL (20-320); Protein, Urine Random 41 MG/DL (5-25); Urine Protein/Creatinine Ratio 488 (22-128)
== END 2019-06-19 12:10 | disposition home or self-care (01) | DRG 71 ==
LOC: ED 05:32 → 2N 09:17

== ENCOUNTER 2021-06-25 07:25 | Inpatient (IN) ==
[2021-06-25] MEDS ORDERED: SODIUM CHLORIDE 0.9% 1000ML 1,000 ML IV STA (08:16)
[2021-06-25] MEDS ORDERED: CEFEPIME 2,000 MG/20 ML VIAL IV STA (08:16)
[2021-06-25] MEDS ORDERED: VANCOMYCIN CONSULT ACTIVE PRN ×2 (08:16→15:25)
[2021-06-25] MEDS ORDERED: VANCOMYCIN HCL 2,250 MG in SODIUM CHLORIDE 0.9% 500 ML IV ONE (08:18)
[2021-06-25 08:50] LABS: Basophils # (auto) 0.03 K/uL (0-0.2); Basophils % (auto) 0.2 %; Eosinophils # (auto) 0.15 K/uL (0-0.5); Eosinophils % (auto) 1.2 %; Hematocrit (blood only) 45.3 % (42-52); Immature Granulocytes # (auto) 0.03 K/uL (0.00-0.02); Immature Granulocytes % (auto) 0.2 %; Lymphocytes # (auto) 0.93 K/uL (1.2-3.4); Lymphocytes % (auto) 7.3 %; Mean Corpuscular Hemoglobin 33.9 pg (25-34); Mean Corpuscular Hgb Conc 35.3 g/dL (32-36); Mean Platelet Volume 10.4 fL (7.4-10.4); Monocytes # (auto) 0.93 K/uL (0.11-0.59); Monocytes % (auto) 7.3 %; Neutrophils # (auto) 10.66 K/uL (1.4-6.5); Neutrophils % (auto) 83.8 %; Platelet Count 267 K/uL (130-400); RDW Coefficient of Variation 13.9 % (11.5-14.5); RDW Standard Deviation 48.9 fL (36.4-46.3); Red Blood Count 4.72 M/uL (4.7-6.1); White Blood Count 12.73 K/uL (4.8-10.8)
[2021-06-25 08:58] LABS: INR 1.1 (0.9-1.1); Prothrombin Time 10.9 Seconds (9.0-12.0)
[2021-06-25 09:06] LABS: Albumin Level 4.1 gm/dl (3.4-5.0); BUN Creatinine Ratio 11.9 (10-20); Calcium 9.6 mg/dl (8.5-10.1); Creatinine Clr Calc Pharmacy 57.8 ml/min; Est GFR (African American) 69.4 ml/min; Est GFR (Non-African American) 59.9 ml/min; Potassium 4.1 mmol/L (3.5-5.1)
[2021-06-25 09:09] LABS: Globulin 3.9 gm/dl (2.5-4.0)
--- NOTE | 2021-06-25 09:55 | Ultrasound Report ---
US venous doppler UE LT CLINICAL HISTORY: cellulitis, swelling, r/o DVT COMPARISON STUDY: No previous studies for comparison. TECHNIQUE: Sonography of the deep venous system of the left upper extremity was performed FINDINGS: The left internal jugular, subclavian, axillary, brachial, basilic, radial and ulnar veins are patent. IMPRESSION: No deep venous thrombus within the left upper extremity. ACT 112: Negative or not required by law. Electronically signed by: Cristian Javier M.D. 06/25/2021 9:53 AM
--- NOTE | 2021-06-25 09:58 | Electrocardiogram Report ---
Test Reason : Blood Pressure : / mmHG Vent. Rate : 097 BPM Atrial Rate : 084 BPM P-R Int : 000 ms QRS Dur : 090 ms QT Int : 388 ms P-R-T Axes : 000 060 -29 degrees QTc Int : 492 ms Atrial fibrillation Diffuse Minor Nonspecific ST and T wave abnormality Abnormal ECG When compared with ECG of 17-JUN-2019 05:40, No significant change Confirmed by Brian Mckeon ([id number]) on 06/25/2021 9:58:22 AM Referred By: Troy Rahman Confirmed By:Brian Mckeon
--- NOTE | 2021-06-25 11:07 | History & Physical Report ---
Date of Service June 25, 2021 Assessment & Plan (1) Cellulitis: Plan: Cellulitis with edema to left upper extremity- non-purulence - Received 2-3 days of Bactrim and Doxy as outpatient- hold - Continue Cefepime and Vancomycin- follow clinical response in 24 hours - CRP, ESR, PCT pending - Lactate negative - not systemically septic - crosses the elbow joint but no effect on movement and no effusion (2) Alcohol use: Plan: 3-4 beers per day- has gone 3 days without drinking prior without difficulty - AAWS Ativan coverage (3) Hypertension: Plan: Cotnrolled - Continue Lisinopril - follow renal function (4) Atrial fibrillation with rapid ventricular response: Plan: Chads VASC 1 continues on ASA - Has only been on Xeralto short time prior to 2019 admisison - Patient says he bleeds too much on the aspirin as it is. - rate controlled asymptomatic (5) Hyponatremia: Plan: Chronic likely related to potomania - follow while in house - do not feel this is related to his infection at this time History of Present Illness Primary Care Provider: Troy Rahman MD 71 YOM with past medical history: HTN, TICK bite, ETOH use, metabolic encephalopathy (2019), afib (on ASA). Patient comes to the emergency room today for worsening of his left arm cellulitis. Patient originally injured his arm with abrasions and ecchymosis after hitting it on the back of the chair on [id number]. Patient was keeping the area clean and dry and returned back to his PCP on 28July for erythema and increase in swelling to the hand. He was then started on Doxycyline and Bactrim as well as a wound culture obtained at that time. The erythema was tracking up his arm to just above the elbow, where it was marked by his PCP and may have slight extension past that today. His wound culture reported by the office has NGTD as the prelim. His hand he states started to swell after walking in the [place] on [place] and getting a mosquito bite at that time. He endorses that this is not abnormal for him to have localized reaction like that to a bit. The hand has 3+ edema soft. In the EMD he had a venous ultrasound done to this arm which is negative for clot. He was started on Vancomycin and Cefepime in the EMD. Had blood cultures drawn. Hosptialist team was notified for admission. Patient will be admitted to medical floor and continue IV antibiotics and follow clinical course with cultures. X-rays ordered, CRP, ESR, and CKMB. Patient has had his COVID vaccine and COVID test is negative on admission. Allergies Allergy/AdvReac Type Severity Reaction Status Date / Time amlodipine Allergy RASH & Verified 06/25/21 08:53 SWOLLEN LEGS benazepril Allergy RASH & Verified 06/25/21 08:53 SWOLLEN LEGS--TAKES LISINOPRIL AT HOME Home Medications Medication Instructions Recorded Confirmed Type ascorbic acid (vitamin C) 500 mg 500 mg PO BID 07/29/18 06/25/21 History capsule aspirin 81 mg tablet,delayed 81 mg PO HS 07/29/18 06/25/21 History release (Aspirin Low Dose) glucosamine-chondroitin 1,500 mg 1 dose PO BID 07/29/18 06/25/21 History -1,200 mg/30 mL oral liquid multivitamin (Multiple Vitamins) 1 tab PO QAM 07/29/18 06/25/21 History vit C 50 mg-E 15 unit-zinc cit 4.5 1 tab PO QAM 06/17/19 06/25/21 History mg-lutein 2.5 mg-zeaxan chew tablet ([employer]) doxycycline hyclate 100 mg capsule 100 mg PO BID 06/25/21 06/25/21 History (Vibramycin) lisinopril 20 mg tablet (Prinivil) 20 mg PO QDD 06/25/21 06/25/21 History sulfamethoxazole 800 1 tab PO BID 06/25/21 06/25/21 History mg-trimethoprim 160 mg tablet (Bactrim DS) verapamil 240 mg 24 hr 240 mg PO QDD 06/25/21 06/25/21 History capsule,extended release (Verelan) Past Med/Surg History Medical History (Updated 06/25/21 @ 11:27 by LONA Torres) Acute hyponatremia Arthritis Atrial fibrillation with rapid ventricular response Chest pain Hypertension Hypertension Seasonal allergies Family History (Updated 06/17/19 @ 13:43 by Nate Hancock MD) Father Hypertension Social History Smoking Status: Former smoker Hx Alcohol Use: Yes Alcohol type: beer and wine Hx Substance Use: No Preferred Language: Swedish Communication Ability: Effective Farm Demonstrator Required: No Beliefs That Will Affect Care: None Current Living Situation: Spouse Feels Safe at Home: Yes Assistive Devices: None Review of Systems Review of Systems: REVIEW OF SYSTEMS: Constitutional: No fever, sweats or chills Eyes: No diplopia, no worsening or blurred vision ENT: normal hearing, no trouble swallowing Respiratory: No cough, sputum, dyspnea at rest or on exertion Cardiovascular: No chest pain, tightness or palpitations Abdomen: No pain, nausea, vomiting, diarrhea or constipation Musculoskeletal/skin: (+) left arm errythema, scratchy pain, edema, Neurologic: No weakness, numbness/tingling, or balance problems Psychiatric: No anxiety or depression Physical Exam Physical Exam: PHYSICAL EXAM: General: awake, alert, no apparent distress Head: Normocephalic, atraumatic ENT: PERRL, EOMI, no pharyngeal exudate, mucous membranes moist Neuro: AAO x 3, speech clear and appropriate, strength intact bilaterally 5/5, sensation intact and equal all extremities and dermatomes, no pronator drift Chest: equal rise and fall of the chest, no accessory muscle use, no heaves or thrills, Clear to auscultation, on room air, Cardiac: irregular rate and rhythm, telemetry reviewed- afib, skin warm dry, cap refill <3 seconds on right hand and 3-4 seconds on left hand, peripheral pulses +2, no JVD, no murmur, no edema to lower extremities. GI: NABS x 4 quadrants, soft, nontender to palpation, no rebound, guarding or tenderness : Spontaneously voiding, no pain, no CVA tenderness, MSK/skin: left arm with full active and passive ROM, compartments soft, hand soft edema with full flexion and extension of hand, fingers, and wrist, pain is controlled, radial pulse 2+ ulnar pulse 2+, sensation intact to arm and hand. Brachial pulse strong and palpable, no pain with flexion and extension of elbow or with supination and pronation. Abrasions and ecchymosis to left top of the arm. Psych: Normal mood and affect Results & Data Results & Data ([facility]) Vital Signs (Past 12 Hours) Vital Signs Temp Pulse Pulse Resp BP BP Pulse Ox 06/25/21 10:30 107 H 23 136/94 96 06/25/21 10:00 96 H 15 141/90 H 98 06/25/21 09:02 99 H 16 141/99 H 99 06/25/21 09:00 92 H 21 141/99 H 99 06/25/21 08:20 91 H 20 135/97 99 06/25/21 07:28 36.4 C L 68 16 147/93 H 96 Laboratory Results Abnormal Labs 06/25/21 06/25/21 08:24 08:24 WBC 12.73 H RDW Std Deviation 48.9 H Neut # (Auto) 10.66 H Lymph # (Auto) 0.93 L [place] # (Auto) 0.93 H Immature Gran # (Auto) 0.03 H Sodium 130 L Diagnostic Findings Extremity Venous Study 06/25/21 08:50 US venous doppler UE LT CLINICAL HISTORY: cellulitis, swelling, r/o DVT COMPARISON STUDY: No previous studies for comparison. TECHNIQUE: Sonography of the deep venous system of the left upper extremity was performed FINDINGS: The left internal jugular, subclavian, axillary, brachial, basilic, radial and ulnar veins are patent. IMPRESSION: No deep venous thrombus within the left upper extremity. Electronically signed by: Cristian Javier M.D. 06/25/2021 9:53 AM Forearm X-Ray 06/25/21 10:36 XR forearm LT 2V CLINICAL HISTORY: cellulitis, injury COMPARISON: None. DISCUSSION: No evidence of acute fracture or dislocation of the left ulna or radius. Evaluation is limited due to osteopenia. Severe degenerative process of the radiocarpal joint and questionable ossified fragment within soft tissue are seen. Further evaluation with dedicated radiograph of the left wrist is recommended. Diffuse soft tissue edema is seen. IMPRESSION: As above. Electronically signed by: Roxana Asencio DO 06/25/2021 12:10 PM Humerus X-Ray 06/25/21 10:36 XR humerus LT 2V CLINICAL HISTORY: cellulitis, injury COMPARISON: None. DISCUSSION: The bones and joint spaces appear intact. There is no evidence of fracture, dislocation or bony disease. Diffuse soft tissue edema is seen. IMPRESSION: No acute fracture or dislocation. Electronically signed by: Roxana Asencio DO 06/25/2021 12:12 PM Medications Administered Home Medications ascorbic acid (vitamin C) 500 mg capsule 500 mg PO BID 07/29/18 [History Confirmed 06/25/21] aspirin 81 mg tablet,delayed release (Aspirin Low Dose) 81 mg PO HS 07/29/18 [History Confirmed 06/25/21] glucosamine-chondroitin 1,500 mg -1,200 mg/30 mL oral liquid 1 dose PO BID 07/29/18 [History Confirmed 06/25/21] multivitamin (Multiple Vitamins) 1 tab PO QAM 07/29/18 [History Confirmed 06/25/21] vit C 50 mg-E 15 unit-zinc cit 4.5 mg-lutein 2.5 mg-zeaxan chew tablet ([facility]) 1 tab PO QAM 06/17/19 [History Confirmed 06/25/21] doxycycline hyclate 100 mg capsule (Vibramycin) 100 mg PO BID 06/25/21 [History Confirmed 06/25/21] lisinopril 20 mg tablet (Prinivil) 20 mg PO QDD 06/25/21 [History Confirmed 06/25/21] sulfamethoxazole 800 mg-trimethoprim 160 mg tablet (Bactrim DS) 1 tab PO BID 06/25/21 [History Confirmed 06/25/21] verapamil 240 mg 24 hr capsule,extended release (Verelan) 240 mg PO QDD 06/25/21 [History Confirmed 06/25/21] Active Medications Sodium Chloride (Nss 1000ml) 1,000 mls @ 125 mls/hr IV .Q8H STA Stop: 06/25/21 16:15 Last Admin: 06/25/21 08:48 Dose: 125 mls/hr Documented by: Miscellaneous Information (Vancomycin Consult Active) 1 ea N/A UD PRN PRN Reason: Consult Stop: 07/25/21 08:15 ECG Additional Comments: Test Reason : Blood Pressure : / mmHG Vent. Rate : 097 BPM Atrial Rate : 084 BPM P-R Int : 000 ms QRS Dur : 090 ms QT Int : 388 ms P-R-T Axes : 000 060 -29 degrees QTc Int : 492 ms Atrial fibrillation Diffuse Minor Nonspecific ST and T wave abnormality Abnormal ECG When compared with ECG of 17-JUN-2019 05:40, No significant change Confirmed by Brian Mckeon ([id number]) on 06/25/2021 9:58:22 AM Code Status & VTE Plan Code Status CODE: FULL VTE: SCDs, Lovenox VTE Prophylaxis Plan VTE Prophylaxis will be ordered: Yes Supervising Physician Co-Signing Physician Notes I have personally evaluated and examined this patient. I agree with assessment and plan of LONA Reddy Moderate nonpurulent cellulitis erysipelas, blood cultures obtained venous duplex obtained no evidence of thrombophlebitis or VTE, started on vancomycin and cefepime superficial wound culture obtained at primary care office however question utility of this. PG Care Time/CCT Total # of Minutes Spent Total Time Spent with Patient: Total time spent is greater than 50% in coordination of care (as documented) at patient's floor/unit and/or counseling patient: Coding Level of Care Code INT OBSERVATION CARE 70M LVL 3 Diagnoses Cellulitis L03.90 Alcohol use Z72.89 Hypertension I10 Atrial fibrillation with rapid ventricular response I48.91 Hyponatremia E87.1
[2021-06-25 12:10] LABS: C Reactive Protein < 0.29 mg/dl (0-0.29)
--- NOTE | 2021-06-25 12:11 | XRay Report ---
XR forearm LT 2V CLINICAL HISTORY: cellulitis, injury COMPARISON: None. DISCUSSION: No evidence of acute fracture or dislocation of the left ulna or radius. Evaluation is limited due to osteopenia. Severe degenerative process of the radiocarpal joint and questionable ossified fragment within soft t issue are seen. Further evaluation with dedicated radiograph of the left wrist is recommended. Diffuse soft tissue edema is seen. IMPRESSION: As above. ACT 112: Negative or not required by law. The above report was generated using voice recognition software. It may contain grammatical, syntax o r spelling errors. Electronically signed by: Roxana Asencio DO 06/25/2021 12:10 PM
--- NOTE | 2021-06-25 12:14 | XRay Report ---
XR humerus LT 2V CLINICAL HISTORY: cellulitis, injury COMPARISON: None. DISCUSSION: The bones and joint spaces appear intact. There is no evidence of fracture, dislocation o r bony disease. Diffuse soft tissue edema is seen. IMPRESSION: No acute fracture or dislocation. ACT 112: Negative or not required by law. The above report was generated using voice recognition software. It may contain grammatical, syntax o r spelling errors. Electronically signed by: Roxana Asencio DO 06/25/2021 12:12 PM
--- NOTE | 2021-06-25 13:31 | XRay Report ---
XR wrist LT 2V HISTORY: 71 years-old Male degenerative process of the radiocarpal joint acute pain and swelling of the left upper extremity COMPARISON: Left humerus and forearm radiographs of same day TECHNIQUE: 2 views of the left wrist FINDINGS: Mild diffuse soft tissue prominence. Mild to moderate radiocarpal with moderate first carpometacarpal osteoarthritis. Intercarpal osteoarthritis is also noted with areas of associated subchondral sclero sis and prominent subcortical cystic changes. Chondrocalcinosis with periarticular calcifications mos t pronounced dorsally. No acute fracture, dislocation or osseous erosion identified. IMPRESSION: 1. Soft tissue swelling without acute fracture. 2. Osteoarthritis with chondrocalcinosis. ACT 112: Negative or not required by law. The above report was generated using voice recognition software. It may contain grammatical, syntax o r spelling errors. Electronically signed by: Shashi Man M.D. 06/25/2021 1:30 PM
[2021-06-25] MEDS ORDERED: LORazepam 1 MG/2 ML VIAL IV PRN ×2 (15:25)
[2021-06-25] MEDS ORDERED: LORazepam 3 MG/6 ML VIAL IV PRN (15:25)
[2021-06-25] MEDS ORDERED: ATIVAN IV ALCOHOL WITHDRAWL IV PRN (15:25)
[2021-06-25] MEDS ORDERED: LORazepam 2 MG/4 ML VIAL IV PRN (15:25)
[2021-06-25] MEDS ORDERED: POLYETHYLENE (MIRALAX) 17 GM PACK PO PRN (15:25)
[2021-06-25] MEDS ORDERED: ACETAMINOPHEN 325 MG TAB PO PRN (15:25)
[2021-06-25] MEDS: LACTATED RINGER'S 1,000 ML IV SCH (16:11)
[2021-06-25] MEDS: CEFEPIME 2,000 MG in SYRINGE 0 ML IV SCH ×2 (16:11→23:52)
--- NOTE | 2021-06-25 16:40 | Pharmacy Report ---
Pharmacy Abx Initial Consult - Date of Service June 25, 2021 - Pharmacy Dosing Scope Date of Consult: 06/25/21 Consultation requested by: Khadar Reddy Pharmacy is consulted to initiate Vancomycin IV dosing therapy, order appropriate labs and adjust drug dose/frequency. - Subjective The patient is a 71 year old M admitted on 06/25/21 11:04. - Objective Height: 5 ft 10 in Weight: 86.4 kg Vital Signs (Past 12hrs): Vital Signs Temp Pulse Pulse Resp BP BP Pulse Ox 06/25/21 16:00 37.3 C 99 H 20 153/92 H 97 06/25/21 15:34 37.3 C 99 H 20 153/92 H 97 06/25/21 15:00 93 H 16 138/83 100 06/25/21 13:00 90 14 148/101 H 100 06/25/21 12:30 100 H 14 144/97 H 100 06/25/21 12:00 90 14 148/95 H 06/25/21 11:30 91 H 16 151/101 H 06/25/21 11:00 98 H 16 146/100 H 100 06/25/21 10:30 107 H 23 136/94 96 06/25/21 10:00 96 H 15 141/90 H 98 06/25/21 09:02 99 H 16 141/99 H 99 06/25/21 09:00 92 H 21 141/99 H 99 06/25/21 08:20 91 H 20 135/97 99 06/25/21 07:28 36.4 C L 68 16 147/93 H 96 Pulse Ox 06/25/21 16:00 97 06/25/21 15:34 06/25/21 15:00 06/25/21 13:00 06/25/21 12:30 06/25/21 12:00 06/25/21 11:30 06/25/21 11:00 06/25/21 10:30 06/25/21 10:00 06/25/21 09:02 06/25/21 09:00 06/25/21 08:20 06/25/21 07:28 Lab Results (24hrs): Laboratory Tests (24 Hours) 06/25/21 06/25/21 06/25/21 08:24 08:24 08:24 WBC Neut # (Auto) ESR 12 Creatinine 1.21 Est Cr Clr Drug Dosing 57.8 C-Reactive Protein < 0.29 06/25/21 08:24 WBC 12.73 H Neut # (Auto) 10.66 H ESR Creatinine Est Cr Clr Drug Dosing C-Reactive Protein Micro Results: 06/25/21 08:24 Aerobic Blood Culture - Pending Blood Anaerobic Blood Culture - Pending 06/25/21 08:24 Aerobic Blood Culture - Pending Blood Anaerobic Blood Culture - Pending - Risk Factors for Resistance * Antimicrobial use within the last 90 days - failed oral Bactrim/Doxycycline course prior to admission - Assessment & Plan Assessment 71 year old M admitted with non purulent left upper arm cellulitis unresponsive to outpatient double antibiotic coverage with sufamethoxasole/trimethoprim and doxycycline Scr 1.21 up from apparent baseline of ~0.9 in [id number] Plan IV Cefepime/Vancomycin for treatment of cellulitis Vancomycin IV * Dosing estimated via Vancomycin AUC Nomogram * Loading dose: 2250 mg (25.7 mg/kg) * Maintenance dose: 1250 mg IV (14.3 mg/kg) every 12 hours * Goal trough level for cellulitis: 13 to 17 mcg/mL * Trough level ordered for Sunday, June 27, 2021 prior to the 0900 hrs dose Pharmacy will continue to follow and will adjust dose/frequency as necessary. Thank you.
[2021-06-25] MEDS: lisinopril 20 MG TAB PO SCH (17:41)
[2021-06-25] MEDS: VERAPAMIL HCL 240 MG TABCR PO SCH (17:41)
[2021-06-25] MEDS: ASPIRIN 81 MG ECTAB PO SCH (21:33)
[2021-06-25] MEDS: ENOXAPARIN INJ 40 MG/0.4 ML SYR SQ SCH (21:33)
[2021-06-25] MEDS: VANCOMYCIN HCL 1,250 MG in SODIUM CHLORIDE 0.9% 250 ML IV SCH (21:34)
[2021-06-26] MEDS: LACTATED RINGER'S 1,000 ML IV SCH ×2 (02:28→14:13)
[2021-06-26 06:12] LABS: Basophils # (auto) 0.05 K/uL (0-0.2); Basophils % (auto) 0.5 %; Eosinophils # (auto) 0.58 K/uL (0-0.5); Eosinophils % (auto) 5.5 %; Hematocrit (blood only) 44.1 % (42-52); Hemoglobin 15.5 g/dL (14.0-18.0); Immature Granulocytes # (auto) 0.03 K/uL (0.00-0.02); Immature Granulocytes % (auto) 0.3 %; Lymphocytes % (auto) 19.9 %; Mean Corpuscular Hemoglobin 34.3 pg (25-34); Mean Corpuscular Hgb Conc 35.1 g/dL (32-36); Mean Corpuscular Volume 97.6 fL (80-100); Mean Platelet Volume 10.3 fL (7.4-10.4); Monocytes # (auto) 0.71 K/uL (0.11-0.59); Monocytes % (auto) 6.7 %; Neutrophils # (auto) 7.07 K/uL (1.4-6.5); Neutrophils % (auto) 67.1 %; Platelet Count 218 K/uL (130-400); RDW Coefficient of Variation 14.2 % (11.5-14.5); Red Blood Count 4.52 M/uL (4.7-6.1); White Blood Count 10.54 K/uL (4.8-10.8)
[2021-06-26 07:02] LABS: Albumin Level 3.5 gm/dl (3.4-5.0); BUN Creatinine Ratio 15.3 (10-20); Calcium 9.2 mg/dl (8.5-10.1); Creatinine Clr Calc Pharmacy 67.3 ml/min; Est GFR (African American) 83.3 ml/min; Est GFR (Non-African American) 71.9 ml/min; Potassium 4.2 mmol/L (3.5-5.1)
[2021-06-26 07:05] LABS: Albumin Globulin Ratio 0.9 (0.9-2); Bilirubin,Total 1.1 mg/dl (0.2-1); Globulin 3.7 gm/dl (2.5-4.0); Total Protein 7.2 gm/dl (6.4-8.2)
[2021-06-26] MEDS: CEFEPIME 2,000 MG in SYRINGE 0 ML IV SCH ×3 (07:45→23:39)
--- NOTE | 2021-06-26 08:09 | Emergency Department Note ---
History of Present Illness General Chief complaint: Infection, Wound Stated complaint: INFECTED ARM Source: patient, family () and RN notes reviewed Mode of arrival: ambulatory Limitations: no limitations History of Present Illness Provider complaint: Left arm infection Maximum Pain Intensity: 2 This patient is a 71-year-old male who is known to the emergency department with complaints of a left arm infection. Patient states he fell about a week ago and hit his left arm on a wooden chair but he did not think anything of the wound. It developed some redness and irritation which he tried to take care of at home. He saw his doctor 3 days ago and was prescribed 2 antibiotics including Bactrim and doxycycline. He was advised to come to the ER at that time however he refused. Patient states the redness is spread past the marker line and he now feels he needs more advanced treatment. Patient denies any fevers but admits to some significant drainage from the wound. He states it is irritated and does itch. He admits to swelling of the hand. Patient denies any history of di abetes or blood clots. He denies any shortness of breath, nausea, shortness of breath, vomiting. Home Medications Medication Instructions Recorded Confirmed Type ascorbic acid (vitamin C) 500 mg 500 mg PO BID 07/29/18 06/25/21 History capsule aspirin 81 mg tablet,delayed 81 mg PO HS 07/29/18 06/25/21 History release (Aspirin Low Dose) glucosamine-chondroitin 1,500 mg 1 dose PO BID 07/29/18 06/25/21 History -1,200 mg/30 mL oral liquid multivitamin (Multiple Vitamins) 1 tab PO QAM 07/29/18 06/25/21 History vit C 50 mg-E 15 unit-zinc cit 4.5 1 tab PO QAM 06/17/19 06/25/21 History mg-lutein 2.5 mg-zeaxan chew tablet ([employer] [facility]) doxycycline hyclate 100 mg capsule 100 mg PO BID 06/25/21 06/25/21 History (Vibramycin) lisinopril 20 mg tablet (Prinivil) 20 mg PO QDD 06/25/21 06/25/21 History sulfamethoxazole 800 1 tab PO BID 06/25/21 06/25/21 History mg-trimethoprim 160 mg tablet (Bactrim DS) verapamil 240 mg 24 hr 240 mg PO QDD 06/25/21 06/25/21 History capsule,extended release (Verelan) Allergies Allergy/AdvReac Type Severity Reaction Status Date / Time amlodipine Allergy RASH & Verified 06/25/21 08:53 SWOLLEN LEGS benazepril Allergy RASH & Verified 06/25/21 08:53 SWOLLEN LEGS--TAKES LISINOPRIL AT HOME Past Med/Surg History Medical History Acute hyponatremia Arthritis Atrial fibrillation with rapid ventricular response Chest pain Hypertension Hypertension Seasonal allergies Family History Father Hypertension Social History Smoking Status: Former smoker Hx Alcohol Use: Yes Alcohol type: beer Hx Substance Use: No Preferred Language: Czech Communication Ability: Effective Dental Internship Required: No Beliefs That Will Affect Care: None Current Living Situation: Spouse Feels Safe at Home: Yes Assistive Devices: None Review of Systems See HPI for pertinent positives & negatives. and A total of 10 systems reviewed and were otherwise negative Physical Exam Vital Signs Vital Signs - 24 hr 06/25/21 08:20 06/25/21 09:00 06/25/21 09:02 Pulse Rate 99 H Pulse Rate [Apical] 91 H 92 H Pulse Rate from SpO2 Sensor 92 H Pulse Rhythm [Apical] Irregular Irregular Pulse Strength [Apical] Normal Normal Respiratory Rate 20 21 16 Respiratory Effort / Characteristics Non-Labored Non-Labored Respiratory Depth Normal Normal Respiratory Pattern Regular Regular Blood Pressure 141/99 H Blood Pressure [Right Arm] 135/97 141/99 H Blood Pressure Mean 113 Blood Pressure Mean [Right Arm] 109 113 Blood Pressure Position [Right Arm] Lying Lying Pulse Oximetry 99 99 99 Oxygen Delivery Method Room Air Room Air 06/25/21 10:00 06/25/21 10:30 06/25/21 11:00 Pulse Rate 96 H 107 H 98 H Pulse Rate [Apical] Pulse Rate from SpO2 Sensor 101 H Pulse Rhythm [Apical] Pulse Strength [Apical] Respiratory Rate 15 23 16 Respiratory Effort / Characteristics Respiratory Depth Respiratory Pattern Blood Pressure 141/90 H 136/94 146/100 H Blood Pressure [Right Arm] Blood Pressure Mean 107 108 115 Blood Pressure Mean [Right Arm] Blood Pressure Position [Right Arm] Pulse Oximetry 98 96 100 Oxygen Delivery Method Vital signs reviewed. General: Chronically ill-appearing 71-year-old male, in no significant distress. HEENT: No scleral icterus, PERRLA, neck supple. Moist mucous membranes Cardiovascular: Irregular but rate controlled, no extra sounds. Pulmonary: Clear to auscultation bilaterally, normal work of breathing. Abdomen: Soft, nontender, nondistended, positive bowel sounds. Musculoskeletal: Atraumatic, pitting peripheral edema to left upper extremity. Neurologic: Patient awake alert and oriented x 3 Skin: Warm, dry, left upper extremity erythema over the entire arm/hand with excoriated forearm from wrist to elbow. Minimal serous drainage dried to the dressing. Edema noted. Areas of ecchymosis in various stages of healing to the bilateral upper extremities. Course Administered Medications Aspirin (Aspirin 81 Mg Ectab) 81 mg PO HS [facility] Stop: 07/25/21 20:59 Last Admin: 06/27/21 19:57 Dose: 81 mg Documented by: [id number] Admin: 06/26/21 21:15 Dose: 81 mg Documented by: [id number] Admin: 06/25/21 21:33 Dose: 81 mg Documented by: [id number] Enoxaparin Sodium (Enoxaparin Inj 40 Mg/0.4 Ml Syr) 40 mg SQ Q24H TOMMIE Stop: 07/25/21 20:59 Last Admin: 06/27/21 19:57 Dose: 40 mg Documented by: [id number] Admin: 06/26/21 21:15 Dose: 40 mg Documented by: [id number] Admin: 06/25/21 21:33 Dose: 40 mg Documented by: [id number] Folic Acid (Folic Acid 1 Mg Tab) 1 mg PO QAM TOMMIE Stop: 07/27/21 08:59 Last Admin: 06/27/21 08:38 Dose: 1 mg Documented by: [id number] Cefepime HCl 2,000 mg/ Syringe 20 mls @ 5 mls/min IV Q8H TOMMIE; Protocol Stop: 07/02/21 07:59 Last Admin: 06/27/21 16:16 Dose: 5 mls/min Documented by: [id number] Admin: 06/27/21 08:13 Dose: 5 mls/min Documented by: [id number] Admin: 06/26/21 23:39 Dose: 5 mls/min Documented by: [id number] Admin: 06/26/21 17:13 Dose: 5 mls/min Documented by: [id number] Admin: 06/26/21 07:45 Dose: 5 mls/min Documented by: [id number] Admin: 06/25/21 23:52 Dose: 5 mls/min Documented by: [id number] Admin: 06/25/21 16:11 Dose: 5 mls/min Documented by: [id number] Vancomycin HCl 1,250 mg/ (Sodium Chloride) 275 mls @ 125 mls/hr IV Q12 TOMMIE; Protocol Stop: 07/02/21 20:59 Last Admin: 06/27/21 19:59 Dose: 125 mls/hr Documented by: [id number] Infusion: 06/27/21 12:33 Dose: 0 mls/hr Documented by: [id number] Admin: 06/27/21 10:21 Dose: 125 mls/hr Documented by: [id number] Infusion: 06/26/21 23:39 Dose: 0 mls/hr Documented by: [id number] Admin: 06/26/21 21:16 Dose: 125 mls/hr Documented by: [id number] Infusion: 06/26/21 11:04 Dose: 0 mls/hr Documented by: [id number] Admin: 06/26/21 08:52 Dose: 125 mls/hr Documented by: [id number] Infusion: 06/25/21 23:52 Dose: 0 mls/hr Documented by: [id number] Admin: 06/25/21 21:34 Dose: 125 mls/hr Documented by: [id number] Lactobacillus Acidoph/Casei/Rhamnos (Advanced Probiotic 1250 Mg Capsule) 2 cap PO DAILY TOMMIE Stop: 07/26/21 20:39 Last Admin: 06/27/21 08:38 Dose: 2 cap Documented by: [id number] Admin: 06/26/21 21:15 Dose: 2 cap Documented by: [id number] Lisinopril (Lisinopril 20 Mg Tab) 20 mg PO QDD [facility] Stop: 07/25/21 16:29 Last Admin: 06/27/21 16:17 Dose: 20 mg Documented by: [id number] Admin: 06/26/21 17:12 Dose: 20 mg Documented by: [id number] Admin: 06/25/21 17:41 Dose: 20 mg Documented by: [id number] Multivitamins/Minerals (Cerovite Adv Formula Tab) 1 tab PO QAM TOMMIE Stop: 07/27/21 08:59 Last Admin: 06/27/21 08:38 Dose: 1 tab Documented by: [id number] Silver Sulfadiazine (Silver Sulfadiazine 1% Cr 400 Gm Jar) 1 appln EXT Q12H [facility] Stop: 07/27/21 11:14 Last Admin: 06/27/21 14:07 Dose: 1 appln Documented by: [id number] Thiamine HCl (Thiamine Hcl 100 Mg Tab) 200 mg PO BID [facility] Stop: 07/26/21 20:59 Last Admin: 06/27/21 19:57 Dose: 200 mg Documented by: [id number] Admin: 06/27/21 08:38 Dose: 200 mg Documented by: [id number] Admin: 06/26/21 21:15 Dose: 200 mg Documented by: [id number] Verapamil HCl (Verapamil Hcl 240 Mg Tabcr) 240 mg PO QDD [facility] Stop: 07/25/21 16:29 Last Admin: 06/27/21 16:16 Dose: 240 mg Documented by: [id number] Admin: 06/26/21 17:13 Dose: 240 mg Documented by: [id number] Admin: 06/25/21 17:41 Dose: 240 mg Documented by: [id number] Discontinued Medications Sodium Chloride (Nss 1000ml) 1,000 mls @ 125 mls/hr IV .Q8H STA Stop: 06/25/21 16:15 Last Infusion: 06/25/21 16:00 Dose: 0 mls/hr Documented by: [id number] Admin: 06/25/21 08:48 Dose: 125 mls/hr Documented by: [id number] Vancomycin HCl 2,250 mg/ (Sodium Chloride) 545 mls @ 200 mls/hr IV NOW ONE Stop: 06/25/21 11:01 Last Infusion: 06/25/21 12:05 Dose: 0 mls/hr Documented by: [id number] Admin: 06/25/21 08:49 Dose: 200 mls/hr Documented by: [id number] Cefepime HCl (Maxipime) 2,000 mg in 20 mls @ 5 mls/min IV NOW STA; Protocol Stop: 06/25/21 08:19 Last Admin: 06/25/21 08:48 Dose: 5 mls/min Documented by: [id number] Lactated Ringer's (Lr) 1,000 mls @ 90 mls/hr IV .Q11H7M [facility]OMMIE Stop: 07/25/21 15:24 Last Infusion: 06/26/21 21:11 Dose: 0 mls/hr Documented by: [id number] Admin: 06/26/21 14:13 Dose: 90 mls/hr Documented by: [id number] Infusion: 06/26/21 14:13 Dose: 0 mls/hr Documented by: [id number] Admin: 06/26/21 02:28 Dose: 90 mls/hr Documented by: [id number] Infusion: 06/26/21 02:28 Dose: 90 mls/hr Documented by: [id number] Admin: 06/25/21 16:11 Dose: 90 mls/hr Documented by: [id number] Metoprolol Tartrate (Metoprolol Tartrate 25 Mg Tab) 25 mg PO BID [facility] Stop: 07/26/21 20:59 Last Admin: 06/27/21 08:40 Dose: Not Given Documented by: [id number] Admin: 06/26/21 21:16 Dose: Not Given Documented by: [id number] Medical Decision Making Differential Diagnosis Cellulitis, abscess, MRSA infection, DVT, necrotizing fasciitis, dermatitis, drug eruption, allergic reaction, as well as other pathologies. Medical Records Attestation: I reviewed the patient's medical records. Home Medications Current Medication List: was personally reviewed by me Laboratory Data Attestation: I reviewed the patient's lab results. Result diagrams: 06/26/21 05:39 06/27/21 08:20 Lab Results 06/25/21 06/25/21 06/25/21 Range/Units 08:24 08:24 08:24 WBC 12.73 H (4.8-10.8) K/uL RBC 4.72 (4.7-6.1) M/uL Hgb 16.0 (14.0-18.0) g/dL Hct 45.3 (42-52) % MCV 96.0 (80-100) fL MCH 33.9 (25-34) pg MCHC 35.3 (32-36) g/dL RDW Std Deviation 48.9 H (36.4-46.3) fL RDW Coeff of Melissa 13.9 (11.5-14.5) % Plt Count 267 (130-400) K/uL MPV 10.4 (7.4-10.4) fL Immature Gran % (Auto) 0.2 % Neut % (Auto) 83.8 % Lymph % (Auto) 7.3 % [place] % (Auto) 7.3 % Eos % (Auto) 1.2 % Baso % (Auto) 0.2 % Neut # (Auto) 10.66 H (1.4-6.5) K/uL Lymph # (Auto) 0.93 L (1.2-3.4) K/uL [place] # (Auto) 0.93 H (0.11-0.59) K/uL Eos # (Auto) 0.15 (0-0.5) K/uL Baso # (Auto) 0.03 (0-0.2) K/uL Immature Gran # (Auto) 0.03 H (0.00-0.02) K/uL ESR (0-20) mm/hr PT 10.9 (9.0-12.0) Seconds INR 1.1 (0.9-1.1) Sodium 130 L (136-145) mmol/L Potassium 4.1 (3.5-5.1) mmol/L Chloride 99 (98-107) mmol/L Carbon Dioxide 24 (21-32) mmol/L Anion Gap 7.0 (3-11) BUN 14 (7-18) mg/dl Creatinine 1.21 (0.6-1.4) mg/dl Est Cr Clr Drug Dosing 57.8 ml/min Est GFR ( Amer) 69.4 ml/min Est GFR (Non-Af Amer) 59.9 ml/min BUN/Creatinine Ratio 11.9 (10-20) Glucose 86 (70-99) mg/dl Lactate (0.4-2.0) mmol/L Calcium 9.6 (8.5-10.1) mg/dl Total Bilirubin 1.0 (0.2-1) mg/dl AST 33 (15-37) U/L ALT 36 (12-78) U/L Alkaline Phosphatase 85 (45-117) U/L CK-MB (CK-2) (0.5-3.6) ng/ml C-Reactive Protein (0-0.29) mg/dl Total Protein 8.0 (6.4-8.2) gm/dl Albumin 4.1 (3.4-5.0) gm/dl Globulin 3.9 (2.5-4.0) gm/dl Albumin/Globulin Ratio 1.0 (0.9-2) COVID-19 Eval Order SARS-CoV-2 (PCR) (Negative) 06/25/21 06/25/21 06/25/21 Range/Units 08:24 08:24 08:24 WBC (4.8-10.8) K/uL RBC (4.7-6.1) M/uL Hgb (14.0-18.0) g/dL Hct (42-52) % MCV (80-100) fL MCH (25-34) pg MCHC (32-36) g/dL RDW Std Deviation (36.4-46.3) fL RDW Coeff of Melissa (11.5-14.5) % Plt Count (130-400) K/uL MPV (7.4-10.4) fL Immature Gran % (Auto) % Neut % (Auto) % Lymph % (Auto) % [place] % (Auto) % Eos % (Auto) % Baso % (Auto) % Neut # (Auto) (1.4-6.5) K/uL Lymph # (Auto) (1.2-3.4) K/uL [place] # (Auto) (0.11-0.59) K/uL Eos # (Auto) (0-0.5) K/uL Baso # (Auto) (0-0.2) K/uL Immature Gran # (Auto) (0.00-0.02) K/uL ESR 12 (0-20) mm/hr PT (9.0-12.0) Seconds INR (0.9-1.1) Sodium (136-145) mmol/L Potassium (3.5-5.1) mmol/L Chloride (98-107) mmol/L Carbon Dioxide (21-32) mmol/L Anion Gap (3-11) BUN (7-18) mg/dl Creatinine (0.6-1.4) mg/dl Est Cr Clr Drug Dosing ml/min Est GFR ( Amer) ml/min Est GFR (Non-Af Amer) ml/min BUN/Creatinine Ratio (10-20) Glucose (70-99) mg/dl Lactate 1.5 (0.4-2.0) mmol/L Calcium (8.5-10.1) mg/dl Total Bilirubin (0.2-1) mg/dl AST (15-37) U/L ALT (12-78) U/L Alkaline Phosphatase (45-117) U/L CK-MB (CK-2) 11.0 H (0.5-3.6) ng/ml C-Reactive Protein < 0.29 (0-0.29) mg/dl Total Protein (6.4-8.2) gm/dl Albumin (3.4-5.0) gm/dl Globulin (2.5-4.0) gm/dl Albumin/Globulin Ratio (0.9-2) COVID-19 Eval Order SARS-CoV-2 (PCR) (Negative) 06/25/21 06/25/21 Range/Units 08:40 08:40 WBC (4.8-10.8) K/uL RBC (4.7-6.1) M/uL Hgb (14.0-18.0) g/dL Hct (42-52) % MCV (80-100) fL MCH (25-34) pg MCHC (32-36) g/dL RDW Std Deviation (36.4-46.3) fL RDW Coeff of Melissa (11.5-14.5) % Plt Count (130-400) K/uL MPV (7.4-10.4) fL Immature Gran % (Auto) % Neut % (Auto) % Lymph % (Auto) % [place] % (Auto) % Eos % (Auto) % Baso % (Auto) % Neut # (Auto) (1.4-6.5) K/uL Lymph # (Auto) (1.2-3.4) K/uL [place] # (Auto) (0.11-0.59) K/uL Eos # (Auto) (0-0.5) K/uL Baso # (Auto) (0-0.2) K/uL Immature Gran # (Auto) (0.00-0.02) K/uL ESR (0-20) mm/hr PT (9.0-12.0) Seconds INR (0.9-1.1) Sodium (136-145) mmol/L Potassium (3.5-5.1) mmol/L Chloride (98-107) mmol/L Carbon Dioxide (21-32) mmol/L Anion Gap (3-11) BUN (7-18) mg/dl Creatinine (0.6-1.4) mg/dl Est Cr Clr Drug Dosing ml/min Est GFR ( Amer) ml/min Est GFR (Non-Af Amer) ml/min BUN/Creatinine Ratio (10-20) Glucose (70-99) mg/dl Lactate (0.4-2.0) mmol/L Calcium (8.5-10.1) mg/dl Total Bilirubin (0.2-1) mg/dl AST (15-37) U/L ALT (12-78) U/L Alkaline Phosphatase (45-117) U/L CK-MB (CK-2) (0.5-3.6) ng/ml C-Reactive Protein (0-0.29) mg/dl Total Protein (6.4-8.2) gm/dl Albumin (3.4-5.0) gm/dl Globulin (2.5-4.0) gm/dl Albumin/Globulin Ratio (0.9-2) COVID-19 Eval Order Covid19 at [facility] SARS-CoV-2 (PCR) NEGATIVE (Negative) Imaging Data Radiologist's Impression: Extremity Venous Study 06/25/21 08:50 US venous doppler UE LT CLINICAL HISTORY: cellulitis, swelling, r/o DVT COMPARISON STUDY: No previous studies for comparison. TECHNIQUE: Sonography of the deep venous system of the left upper extremity was performed FINDINGS: The left internal jugular, subclavian, axillary, brachial, basilic, radial and ulnar veins are patent. IMPRESSION: No deep venous thrombus within the left upper extremity. ACT 112: Negative or not required by law. Electronically signed by: Cristian Javier M.D. 06/25/2021 9:53 AM Forearm X-Ray 06/25/21 10:36 XR forearm LT 2V CLINICAL HISTORY: cellulitis, injury COMPARISON: None. DISCUSSION: No evidence of acute fracture or dislocation of the left ulna or radius. Evaluation is limited due to osteopenia. Severe degenerative process of the radiocarpal joint and questionable ossified fragment within soft tissue are seen. Further evaluation with dedicated radiograph of the left wrist is recommended. Diffuse soft tissue edema is seen. IMPRESSION: As above. ACT 112: Negative or not required by law. The above report was generated using voice recognition software. It may contain grammatical, syntax or spelling errors. Electronically signed by: Roxana Asencio DO 06/25/2021 12:10 PM Humerus X-Ray 06/25/21 10:36 XR humerus LT 2V CLINICAL HISTORY: cellulitis, injury COMPARISON: None. DISCUSSION: The bones and joint spaces appear intact. There is no evidence of fracture, dislocation or bony disease. Diffuse soft tissue edema is seen. IMPRESSION: No acute fracture or dislocation. ACT 112: Negative or not required by law. The above report was generated using voice recognition software. It may contain grammatical, syntax or spelling errors. Electronically signed by: Roxana Asencio DO 06/25/2021 12:12 PM ECG Data Attestation: I personally reviewed and interpreted this ECG as follows: Indication: + other (Irregular heartbeat) Rate (beats per minute): 97 Rhythm: + atrial fibrillation ECG Intervals/blocks: + Prolonged QT (492) ECG [place]: + Normal ECG ST segments: + Nonspecific ST abnormalities ECG Findings: no PACs or no PVCs Comparison ECG Date: from (06/17/19) Change: no significant change Blood Pressure Blood Pressure Findings: Normal blood pressure Blood Pressure Disposition: did not require urgent referral MDM Narrative This patient was evaluated and appeared to be in no significant distress. IV access was obtained and laboratory work was drawn. An order for cardiac monitoring was placed and the patient was noted to be in a rate controlled atrial fibrillation at 91 bpm. Laboratory work reveals a mild leukocytosis with a sodium of 130 and a normal lactate. Blood cultures have been obtained and the patient was medicated with IV cefepime and vancomycin. Ultrasound the left upper extremity was obtained and reveals no DVT. Patient was informed of the findings. Due to the extensive nature of the cellulitis and the failed outpatient regimen he was referred to the hospitalist service for further management. Patient was aware of the plan and agreed. Impression & Plan Cellulitis of arm, left, Atrial fibrillation, controlled Discharge Plan Visit Data Chief Complaint: Infection, Wound Stated Complaint: INFECTED ARM ED Provider: Rose Melchor Discharge Problem: Cellulitis of arm, left, Atrial fibrillation, controlled Patient Disposition: Admitted As Inpatient Discharge Instructions Interventions: ED Discharge Assessment Last Done: 06/25/21 15:12
[2021-06-26] MEDS: VANCOMYCIN HCL 1,250 MG in SODIUM CHLORIDE 0.9% 250 ML IV SCH ×2 (08:52→21:16)
[2021-06-26] MEDS: lisinopril 20 MG TAB PO SCH (17:12)
[2021-06-26] MEDS: VERAPAMIL HCL 240 MG TABCR PO SCH (17:13)
--- NOTE | 2021-06-26 20:39 | Hospitalist Progress Note ---
Date of Service June 26, 2021 Assessment & Plan (1) Cellulitis: Plan: LUE. Diffuse. No purulent drainage. No abscess. No joint involvement. A wound culture was obtained in the [facility] office this week - will attempt to get that culture. In meantime, elevate the arm with pillows, tylenol/motrin prn pain, and continue current abx (cefepime/vancomycin). Add lactinex. (2) Alcohol use: Plan: Add thiamine BID, folate daily, and MVI daily. No signs/symptoms of etoh withdrawal at this time. Etoh withdrawal protocol with ativan prn. (3) Hypertension: Plan: Uncontrolled. Cont COREY. Cont verapamil. Metoprolol being added for a.fib will help as well. (4) Atrial fibrillation with rapid ventricular response: Plan: rates still uncontrolled. add metoprolol 25mg BID. cont verapamil. CHADSVASc score is 2 - will speak with him about anticoagulation. Suspect he has permanent a.fib. (5) Hyponatremia: Plan: Suspect 2nd to chronic etoh use. Received IV LR overnight; will d/c fluids now, and recheck BMP am. (6) DVT prophylaxis: Plan: lovenox daily Admission and Anticipated Discharge Date Admission Date: June 25, 2021 Subjective patient was walking the hallways just prior to my visit he denied any dyspnea or chest pain denies fevers/chills no loss of appetite he c/o left arm swelling but no significant pain/discomfort minimal drainage from left forearm he had a wound 6-7 weeks ago on the left arm - he had hit the arm against a wooden chair the wounds had healed nicely weeks ago he can move the left shoulder, left elbow, and left wrist without pain Review of Systems Review of Systems: Gen: no fevers/chills/anorexia CV: no chest pain pulm: no cough GI: no diarrhea Physical Exam Physical Exam: gen - NAD, pleasant neck - no JVD mouth - MMM heart - borderline tachy, irregular, s1 s2, no murmur lungs - CTA b/l abd - soft, NT, ND, BS+ ext - extensive cellulitis of left arm extending from mid-biceps region to the left wrist/hand region; radial pulse left 2+; cap refill <2 sec skin - intensely erythematous skin extending from mid-biceps to dorsum of left hand; macerated skin in a linear fashion from distal to the elbow to mid- forearm; no significant drainage; no crepitus; no abscess; no tenderness to palpation along the entire arm musculo - active ROM of left shoulder, left elbow, and left wrist are full and without signs of septic joint; left arm with swelling from biceps region down to the left hand, about 2+. Results & Data Results & Data ([facility]) Vital Signs (Past 12 Hours) Vital Signs Temp Pulse Resp BP Pulse Ox 06/26/21 16:00 37.3 C 109 H 18 174/96 H 97 Laboratory Results Laboratory Results - last 24 hr 06/26/21 06/26/21 05:39 05:39 WBC 10.54 RBC 4.52 L Hgb 15.5 Hct 44.1 MCV 97.6 MCH 34.3 H MCHC 35.1 RDW Std Deviation 50.0 H RDW Coeff of Melissa 14.2 Plt Count 218 MPV 10.3 Immature Gran % (Auto) 0.3 Neut % (Auto) 67.1 Lymph % (Auto) 19.9 [place] % (Auto) 6.7 Eos % (Auto) 5.5 Baso % (Auto) 0.5 Neut # (Auto) 7.07 H Lymph # (Auto) 2.10 [place] # (Auto) 0.71 H Eos # (Auto) 0.58 H Baso # (Auto) 0.05 Immature Gran # (Auto) 0.03 H Sodium 133 L Potassium 4.2 Chloride 103 Carbon Dioxide 24 Anion Gap 5.0 BUN 16 Creatinine 1.04 Est Cr Clr Drug Dosing 67.3 Est GFR ( Amer) 83.3 Est GFR (Non-Af Amer) 71.9 BUN/Creatinine Ratio 15.3 Glucose 81 Calcium 9.2 Total Bilirubin 1.1 H AST 28 ALT 31 Alkaline Phosphatase 73 Total Protein 7.2 Albumin 3.5 Globulin 3.7 Albumin/Globulin Ratio 0.9 PG Care Time/CCT Total # of Minutes Spent Total Time Spent with Patient: Total time spent is greater than 50% in coordination of care (as documented) at patient's floor/unit and/or counseling patient: Coding Level of Care Code 19132 Subseq Hosp Care Lvl 2 Diagnoses Cellulitis L03.90 Alcohol use Z72.89 Hypertension I10 Atrial fibrillation with rapid ventricular response I48.91 Hyponatremia E87.1 DVT prophylaxis Z29.9
[2021-06-26] MEDS: THIAMINE HCL 100 MG TAB PO SCH (21:15)
[2021-06-26] MEDS: ADVANCED PROBIOTIC 1250 MG CAPSULE PO SCH (21:15)
[2021-06-26] MEDS: ENOXAPARIN INJ 40 MG/0.4 ML SYR SQ SCH (21:15)
[2021-06-26] MEDS: ASPIRIN 81 MG ECTAB PO SCH (21:15)
[2021-06-26] MEDS: METOPROLOL TARTRATE 25 MG TAB PO SCH (21:16)
[2021-06-27] MEDS: CEFEPIME 2,000 MG in SYRINGE 0 ML IV SCH ×3 (08:13→22:59)
[2021-06-27] MEDS ORDERED: VANCOMYCIN TROUGH ONE (08:30)
[2021-06-27] MEDS: CEROVITE ADV FORMULA TAB PO SCH (08:38)
[2021-06-27] MEDS: METOPROLOL TARTRATE 25 MG TAB PO SCH ×2 (08:38→08:40)
[2021-06-27] MEDS: FOLIC ACID 1 MG TAB PO SCH (08:38)
[2021-06-27] MEDS: THIAMINE HCL 100 MG TAB PO SCH ×2 (08:38→19:57)
[2021-06-27] MEDS: ADVANCED PROBIOTIC 1250 MG CAPSULE PO SCH (08:38)
[2021-06-27 09:15] LABS: BUN Creatinine Ratio 17.3 (10-20); Calcium 9.1 mg/dl (8.5-10.1); Creatinine Clr Calc Pharmacy 79.5 ml/min; Est GFR (African American) 100.2 ml/min; Est GFR (Non-African American) 86.4 ml/min; Potassium 3.6 mmol/L (3.5-5.1)
[2021-06-27] MEDS: VANCOMYCIN HCL 1,250 MG in SODIUM CHLORIDE 0.9% 250 ML IV SCH ×2 (10:21→19:59)
--- NOTE | 2021-06-27 10:49 | Pharmacy Report ---
Pharmacy Abx Dose Short Note - Date of Service June 27, 2021 - Assessment & Plan Assessment 71 year old M receiving IV Vancomycin + Cefepime for treatment of Cellulitis of left arm, failed outpatient Bactrim + Doxycycline Diffuse, No purulent drainage. No abscess. No joint involvement. A wound culture was obtained in the [facility] office this week - hospitalist to attempt to get that culture. Day # 3 of antimicrobial therapy. Plan Vancomycin * Trough level of 16.4 mcg/mL is therapeutic * Continue dose of 1250 mg IV every 12 hours * Goal trough level for Cellulitis ~15 mcg/mL Cefepime 2g IV Q8H for CrCL > 60ml/min Pharmacy will continue to follow and will adjust dose/frequency as necessary. Thank you.
[2021-06-27] MEDS: SILVER SULFADIAZINE 1% CR 400 GM JAR EXT SCH ×2 (14:07→23:05)
--- NOTE | 2021-06-27 15:28 | Hospitalist Progress Note ---
Date of Service June 27, 2021 Assessment & Plan (1) Cellulitis: Plan: LUE. Diffuse. No purulent drainage. No abscess. No joint involvement. A wound culture was obtained -reported as no growth per prior attending Continue with elevation Continue with cefepime/Vanco (which should provide adequate gram-positive/gram-negative coverage and MRSA) Add topical Silvadene If no significant change overnight, will consider MRI tomorrow but clinically, no evidence of a drainable abscess that I can tell (2) Alcohol use: Plan: Continue thiamine BID, folate daily, and MVI daily. No signs/symptoms of etoh withdrawal at this time. Etoh withdrawal protocol with ativan prn. (3) Hypertension: Plan: Uncontrolled. Cont COREY. Cont verapamil. Patient refuses metoprolol Continue to monitor and if needed, will uptitrate verapamil (4) Atrial fibrillation with rapid ventricular response: Plan: Variable rate but has been in the 90s now. May have been slightly tachycardic given cellulitis Patient refuses metoprolol cont verapamil. Will uptitrate if needed CHADSVASc score is 2 -declines ACT at this time Suspect he has permanent a.fib. (5) Hyponatremia: Plan: Suspect suspect beer Potomania secondary to chronic alcohol abuse Continue to monitor (6) DVT prophylaxis: Plan: lovenox daily Admission and Anticipated Discharge Date Admission Date: June 25, 2021 Subjective Patient seen on daily rounds today. He is a 71-year-old white male with a past medical history of hypertension, chronic alcohol use, atrial fibrillationnot on anticoagulation therapy. He was hospitalized on 06/25 with cellulitis of his left upper extremity. Initially had an injury to the left arm approximately 7 weeks ago after he fell and hit his arm on the back of a chair. Had some mild skin breakdown that he was using topical antibiotic ointment for and claims that the arm "healed without issues". Approximately 10 days ago, he developed increasing redness/swelling of the left arm that prompted him to see his PCP. On 06/23 was started on both doxycycline and Bactrim. After 2 days of antibiotic therapy, there was no change which prompted him into the ED. There he was found to have a white count of 12.7 but otherwise was afebrile and hemodynamically stable. His sodium level was slightly low at 130. Venous Doppler was done showing no evidence of DVT plain film showed soft tissue edema.. Was subsequently hospitalized and started on cefepime/vancomycin. Patient claims that the edema in his left upper extremity has substantially improved. Still with erythema/edema and "burning pain". Patient with variable heart rate in the 90s to 110. Metoprolol added; however, patient refuses. Claims that he was on this in the past and it caused terrible swelling of his lower extremities along with burning pain in his hands and feet. Heart rate this morning is 93. Does drink chronically. Reports 3-4 beers/day. Has been on AWSS monitoringno as needed Ativan needed. Patient denies tremors, abdominal pain, nausea, vomiting, diaphoresis. No overt tachycardia. Nursing voices no complaints or concerns. Review of Systems Review of Systems: All systems reviewed and are unremarkable except as noted in HPI and below Denies fevers, chills, headache, nasal congestion, sore throat, cough, chest pain, shortness of breath, abdominal pain, nausea, vomiting, dysuria, hematuria, frequency. Physical Exam Physical Exam: General: Resting comfortably in his hospital bed. NAD. Neck: No JVD. Negative hepatojugular reflex Cardiac: Irregularly irregular with a rate of 92 bpm Lungs: CTA without W/R/R Abdomen: Normoactive X4. Soft and nontender in all quadrants. Extremities: No peripheral clubbing cyanosis or edema Neuro: A&O X4 cranial nerves II through XII are grossly intact no focal neuro deficits Skin: Left upper extremity with impressive erythema/edema. Erythema starts just below the left wrist and spans proximally above the elbow but spares the olecranon process. There is swelling noted of the dorsal aspect of the wrist and spanning proximally to above the elbow. Area is warm to touch. There is serous drainage seeping from the arm. Circumferentially, forearm is 11 inches (compared to 9 on the right) and the bicipital area is 13 inches (compared to 11 inches on the right). Radial pulses intact and symmetrical bilaterally. Capillary refill +2. Results & Data Results & Data ([facility]) Vital Signs (Past 12 Hours) Vital Signs Temp Pulse Resp BP Pulse Ox 06/27/21 07:50 37.1 C 93 H 20 153/99 H 99 Laboratory Results 06/26/21 05:39 06/27/21 08:20 PG Care Time/CCT Total # of Minutes Spent Total Time Spent with Patient: Total time spent is greater than 50% in coordi nation of care (as documented) at patient's floor/unit and/or counseling patient: Coding [place] [address] Subseq Hosp Care Lvl 2 Patient Type Established History Expanded Problem Focused Exam Expanded Problem Focused Medical Decision Making Moderate Complexity Diagnoses Cellulitis L03.90 Alcohol use Z72.89 Hypertension I10 Atrial fibrillation with rapid ventricular response I48.91 Hyponatremia E87.1 DVT prophylaxis Z29.9
[2021-06-27] MEDS: VERAPAMIL HCL 240 MG TABCR PO SCH (16:16)
[2021-06-27] MEDS: lisinopril 20 MG TAB PO SCH (16:17)
[2021-06-27] MEDS: ENOXAPARIN INJ 40 MG/0.4 ML SYR SQ SCH (19:57)
[2021-06-27] MEDS: ASPIRIN 81 MG ECTAB PO SCH (19:57)
[2021-06-28 07:09] LABS: Magnesium 2.1 mg/dl (1.8-2.4); Potassium 3.9 mmol/L (3.5-5.1)
[2021-06-28 07:10] LABS: Albumin Globulin Ratio 0.9 (0.9-2); BUN Creatinine Ratio 18.7 (10-20); Bilirubin,Total 0.9 mg/dl (0.2-1); Calcium 8.7 mg/dl (8.5-10.1); Creatinine Clr Calc Pharmacy 94.5 ml/min; Est GFR (African American) 107.6 ml/min; Est GFR (Non-African American) 92.8 ml/min; Globulin 3.5 gm/dl (2.5-4.0); Total Protein 6.5 gm/dl (6.4-8.2)
[2021-06-28] MEDS: CEFEPIME 2,000 MG in SYRINGE 0 ML IV SCH ×2 (07:46→16:22)
[2021-06-28] MEDS: ADVANCED PROBIOTIC 1250 MG CAPSULE PO SCH (08:00)
[2021-06-28] MEDS: CEROVITE ADV FORMULA TAB PO SCH (08:00)
[2021-06-28] MEDS: FOLIC ACID 1 MG TAB PO SCH (08:00)
[2021-06-28] MEDS: THIAMINE HCL 100 MG TAB PO SCH ×2 (08:00→20:26)
[2021-06-28 08:20] LABS: Basophils # (auto) 0.06 K/uL (0-0.2); Basophils % (auto) 0.6 %; Eosinophils # (auto) 0.47 K/uL (0-0.5); Eosinophils % (auto) 4.9 %; Hemoglobin 15.6 g/dL (14.0-18.0); Immature Granulocytes # (auto) 0.02 K/uL (0.00-0.02); Immature Granulocytes % (auto) 0.2 %; Lymphocytes # (auto) 1.54 K/uL (1.2-3.4); Mean Corpuscular Hemoglobin 33.5 pg (25-34); Mean Corpuscular Volume 96.8 fL (80-100); Mean Platelet Volume 10.6 fL (7.4-10.4); Monocytes % (auto) 9.3 %; Neutrophils # (auto) 6.64 K/uL (1.4-6.5); Platelet Count 220 K/uL (130-400); RDW Coefficient of Variation 13.9 % (11.5-14.5); RDW Standard Deviation 49.8 fL (36.4-46.3); Red Blood Count 4.65 M/uL (4.7-6.1); White Blood Count 9.63 K/uL (4.8-10.8)
[2021-06-28 08:30] LABS: Mean Corpuscular Hgb Conc 34.7 g/dL (32-36)
[2021-06-28] MEDS: VANCOMYCIN HCL 1,250 MG in SODIUM CHLORIDE 0.9% 250 ML IV SCH ×2 (09:14→20:27)
[2021-06-28] MEDS: SILVER SULFADIAZINE 1% CR 400 GM JAR EXT SCH ×2 (11:18→23:03)
[2021-06-28] MEDS: GADOXETATE DISODIUM IV ONE ×2 (13:33→15:01)
[2021-06-28] MEDS ORDERED: GADOBUTROL 65ML VIAL IV ONE (13:35)
--- NOTE | 2021-06-28 14:18 | Magnetic Resonance Report ---
MR forearm LT wo/w con HISTORY: 71 years-old Male cellulitis. ? abscess/osteo/tendonitis acute pain and swelling of the lef t forearm COMPARISON: Forearm radiographs 06/25/2021 TECHNIQUE: Multiple axial CT images of the left forearm were obtained both with and without the use o f 8.5 mL Gadavist FINDINGS: Extensive diffuse subcutaneous edema with associated skin thickening. The study is motion degraded. N o drainable fluid collection. There are 2 probable ganglions of the volar wrist measuring up to 9 mm. Severe radiocarpal osteoarthritis with prominent subcortical cystic changes of the carpus. This stud y is not tailored to assess the wrist and elbow intrinsic structures. No acute fracture, bone marrow edema or osseous erosion identified. No intramuscular fluid collections or abnormal enhancement. Syno vial enhancement at the level of the carpus is likely on a degenerative basis. IMPRESSION: 1. Extensive diffuse subcutaneous edema with associated skin thickening of the forearm is suggestive of cellulitis. Venous stasis or lymphedema could appear similarly. 2. No fluid collection or abnormal enhancement. 3. Severe radiocarpal osteoarthritis. 4. No acute fracture or osseous erosion. ACT 112: Negative or not required by law. The above report was generated using voice recognition software. It may contain grammatical, syntax o r spelling errors. Electronically signed by: Shashi Man M.D. 06/28/2021 2:17 PM
[2021-06-28] MEDS ORDERED: FUROSEMIDE 20 MG in SYRINGE 0 ML IV ONE (16:00)
[2021-06-28] MEDS: lisinopril 20 MG TAB PO SCH (16:22)
[2021-06-28] MEDS: VERAPAMIL HCL 240 MG TABCR PO SCH (16:22)
--- NOTE | 2021-06-28 17:09 | Hospitalist Progress Note ---
Date of Service June 28, 2021 Assessment & Plan (1) Cellulitis: Plan: LUE. Diffuse/impressive. No purulent drainage. No abscess. No joint involvement. A wound culture was obtained (PCP [employer])-reported as no growth per prior attending Continue with elevation Continue with cefepime/Vanco (which should provide adequate gram-positive/gram-negative coverage and MRSA); however, since worsening erythema despite nearly 72 Hr of this regimen- I have discussed case with Dr. Sullivan who has recommended addition of Clinda. Vancomycin is therapeutic with a trough of 16.4 No evidence of fasciitis or compartment syndrome at present May need to consider ID consult If not change overnight. (2) Alcohol use: Plan: Continue thiamine BID, folate daily, and MVI daily. No signs/symptoms of etoh withdrawal at this time. Etoh withdrawal protocol with ativan prn. (3) Hypertension: Plan: Uncontrolled. Cont COREY. Cont verapamil. Patient refuses metoprolol will uptitrate verapamil (4) Atrial fibrillation with rapid ventricular response: Plan: Variable rate but has been in the 90s now. May have been slightly tachycardic given cellulitis Patient refuses metoprolol cont verapamil with uptitration for BP control CHADSVASc score is 2 -declines ACT at this time Suspect he has permanent a.fib. 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 Sullivan who also examined patient given his lack of response to current abx regimen and failed OP response to Bactrim/Doxy. Plan is for continuation of cefepime/vancomycin with the addition of clindamycin. Admission and Anticipated Discharge Date Admission Date: June 25, 2021 Subjective Patient seen on daily rounds today. Remains on IV cefepime and vancomycin for cellulitis of the left upper extremity (after failing both doxy and Bactrim [employer]). Slowly approaching 72 hours of IV antibiotics. His white blood cell count has normalized. He has remained afebrile and hemodynamically stable. He claims that the swelling in the arm has improved and the added Silvadene of the left arm has helped with the burning pain. To me, the arm looked substantially worse compared to yesterday which led to an MRI with contrast. No drainable abscess or tendon involvement seen. Review of Systems Review of Systems: All systems reviewed and are unremarkable except as noted in HPI and below Denies fevers, chills, headache, nasal congestion, sore throat, cough, chest pain, shortness of breath, abdominal pain, nausea, vomiting, dysuria, hematuria, frequency, skin lesions or rashes. Physical Exam Physical Exam: General: Resting comfortably in his hospital bed. NAD. Neck: No JVD. Negative hepatojugular reflex Cardiac: Irregularly irregular with controlled ventricular rate Lungs: CTA without W/R/R Abdomen: Normoactive X4. Soft and nontender in all quadrants. Extremities: Left upper extremity with impressive cellulitic changes. When seen this morning, edema was improved as it was no longer involving the hand. Reassessed after his MRI (arm dependent) and the edema in the hand has inc reasedwith 1-2+ pitting. The arm is substantially erythematous but surprisingly not warm to touch. He has serous drainage seeping from the arm. Area of redness is now over the area of demarcation and is be on the wrist and elbow. Radial pulses intact and symmetrical bilaterally. Capillary refill +2. Fingers cool to touch but sensation intact. Neuro: A&O X4 cranial nerves II through XII are grossly intact no focal neuro deficits Skin: No obvious skin lesions or rashes Results & Data Results & Data ([facility]) Vital Signs (Past 12 Hours) Vital Signs Temp Pulse Resp BP Pulse Ox 06/28/21 16:24 36.7 C 103 H 18 184/92 H 98 06/28/21 07:52 36.8 C 88 16 156/94 H 100 Laboratory Results 06/28/21 07:34 06/28/21 06:12 Diagnostic Findings MRI of the left upper extremity: IMPRESSION: 1. Extensive diffuse subcutaneous edema with associated skin thickening of the forearm is suggestive of cellulitis. Venous stasis or lymphedema could appear similarly. 2. No fluid collection or abnormal enhancement. 3. Severe radiocarpal osteoarthritis. 4. No acute fracture or osseous erosion. PG Care Time/CCT Total # of Minutes Spent Total Time Spent with Patient: Total time spent is greater than 50% in co ordination of care (as documented) at patient's floor/unit and/or counseling patient: [place] [address] Subseq Hosp Care Lvl 3 Patient Type Established History Comprehensive Exam Comprehensive Medical Decision Making High Complexity Diagnoses Cellulitis L03.90 Alcohol use Z72.89 Hypertension I10 Atrial fibrillation with rapid ventricular response I48.91 Hyponatremia E87.1 DVT prophylaxis Z29.9
[2021-06-28] MEDS: CLINDAMYCIN 600 MG in DEXTROSE 5% 50 ML IV SCH (17:28)
[2021-06-28] MEDS: ASPIRIN 81 MG ECTAB PO SCH (20:26)
[2021-06-28] MEDS: ENOXAPARIN INJ 40 MG/0.4 ML SYR SQ SCH (20:27)
[2021-06-29] MEDS: CEFEPIME 2,000 MG in SYRINGE 0 ML IV SCH ×4 (00:01→23:10)
[2021-06-29] MEDS: CLINDAMYCIN 600 MG in DEXTROSE 5% 50 ML IV SCH ×4 (00:01→23:10)
[2021-06-29] MEDS: THIAMINE HCL 100 MG TAB PO SCH ×2 (08:05→20:44)
[2021-06-29] MEDS: ADVANCED PROBIOTIC 1250 MG CAPSULE PO SCH ×2 (08:06→20:44)
[2021-06-29] MEDS: FOLIC ACID 1 MG TAB PO SCH (08:06)
[2021-06-29] MEDS: SACCHAROMYCES BOULARDII 250 MG CAP PO SCH (08:06)
[2021-06-29] MEDS: CEROVITE ADV FORMULA TAB PO SCH (08:06)
[2021-06-29] MEDS ORDERED: VERAPAMIL HCL 120 MG TABCR PO SCH (09:00)
[2021-06-29] MEDS: VANCOMYCIN HCL 1,250 MG in SODIUM CHLORIDE 0.9% 250 ML IV SCH ×2 (09:17→20:48)
[2021-06-29] MEDS: SILVER SULFADIAZINE 1% CR 400 GM JAR EXT SCH ×2 (12:39→20:45)
--- NOTE | 2021-06-29 13:35 | Ultrasound Report ---
US venous doppler UE RT CLINICAL HISTORY: r/o DVT vs superficial phlebitis COMPARISON STUDY: No previous studies for comparison. TECHNIQUE: Sonography of the venous system of the right upper extremity was performed. FINDINGS: No deep venous thrombus is identified within the right upper extremity. Note is made of sup erficial thrombus within the right basilic vein which extends from the proximal to mid forearm, 8 cm in length. IMPRESSION: 1. No deep venous thrombus within the right upper extremity. 2. Superficial thrombus within the right basilic vein which extends for 8 cm in length. ACT 112: Negative or not required by law. Electronically signed by: Cristian Javier M.D. 06/29/2021 1:34 PM
--- NOTE | 2021-06-29 15:38 | Ultrasound Report ---
ULTRASOUND LEFT UPPER EXTREMITY VENOUS CLINICAL HISTORY: Left arm swelling. COMPARISON STUDY: Left upper extremity venous ultrasound dated 06/25/2021.. TECHNIQUE: Real-time, grayscale, and color Doppler sonography of the deep veins of the left upper ext remity is performed. Compression and augmentation were utilized. FINDINGS: There is no sonographic evidence of deep venous thrombosis identified in the left upper ext remity. The left internal jugular, axillary, and brachial veins are patent and normally compressible. Normal venous waveforms and augmentation are seen within the left subclavian vein. The cephalic and basilic veins are clear. The visualized radial and ulnar veins are patent. IMPRESSION: 1. There is no sonographic evidence of deep venous thrombosis identified in the left upper extremity. 2. Superficial venous thrombus within the left basilic vein seen on 06/25/2021 was not clearly visuali zed on today's examination. ACT 112: Negative or not required by law. Electronically signed by: Adriano Dee M.D. 06/29/2021 3:37 PM
[2021-06-29] MEDS: VERAPAMIL HCL 120 MG TABCR PO SCH (15:47)
[2021-06-29] MEDS: lisinopril 20 MG TAB PO SCH (15:47)
[2021-06-29] MEDS: VERAPAMIL HCL 180 MG TABCR PO SCH (15:48)
[2021-06-29] MEDS: ENOXAPARIN 80 MG/0.8 ML SYR SQ SCH (17:04)
--- NOTE | 2021-06-29 18:22 | Hospitalist Progress Note ---
Date of Service June 29, 2021 Assessment & Plan (1) Cellulitis: Plan: LUE. Diffuse/impressive. No purulent drainage. No abscess. No joint involvement. A wound culture was obtained (PCP [employer])-reported as no growth per prior attending Continue with elevation Continue with cefepime/Vanco (which should provide adequate gram-positive/gram-negative coverage and MRSA); however, since worsening erythema despite nearly 72 Hr of this regimen- I have discussed case with Dr. Sullivan who has recommended addition of Clinda. Vancomycin is therapeutic with a trough of 16.4 No evidence of fasciitis or compartment syndrome at present Plan is for continuation of triple antibiotic therapy empirically for now. Uncertain if addition of clindamycin caused notable improvement or if more time with cefepime/vancomycin is what caused subtle improvement. At any rate, we will continue this regimen X 48 hours prior to de-escalation. We will reach out to pharmacy when planning to transition/de-escalate for some guidance (2) Alcohol use: Plan: Continue thiamine BID, folate daily, and MVI daily. No signs/symptoms of etoh withdrawal at this time. Etoh withdrawal protocol with ativan prn. (3) Hypertension: Plan: Uncontrolled. Cont COREY. Cont verapamil. With up titration Patient refuses metoprolol (4) Atrial fibrillation with rapid ventricular response: Plan: Variable rate but has been in the 90s now. May have been slightly tachycardic given cellulitis Patient refuses metoprolol cont verapamil with uptitration for BP control CHADSVASc score is 2 -declines ACT at this time Suspect he has permanent a.fib. 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 Patient does have a history of A. fib and is not anticoagulated. He has refused this long-term. Will continue to discuss with patient * Repeat venous Doppler of the left upper extremity shows no evidence of DVT * For right upper extremity, will use heat and NSAIDs as needed Plan: plan of care D/W Dr. Sullivan Follow-up labs in the a.m. to trend Admission and Anticipated Discharge Date Admission Date: June 25, 2021 Subjective Patient seen on daily rounds today. Vocalizes no significant change in symptoms. Reports the swelling in his left arm/hand seems to be improved. Has not had any fever spikes. Multiple attempts at lab draw today without success. Patient refused any further lab draws today. Is complaining of right arm pain which is new. Denies diarrhea/abdominal pain. Given his right arm pain with a presumed palpable cord on exam, a right upper quadrant venous Doppler was obtained that showed a superficial thrombosis. Patient is on Lovenox for DVT prophylaxis. Given the development of superficial thrombosis while on DVT prophylaxis and the increasing erythema/edema of his left upper extremity noted yesterdaya repeat venous Doppler of the left upper extremity was performed that showed no evidence of DVT. Patient did have a venous Doppler of the left upper extremity done 06/25 that again showed no evidence of DVT. Review of Systems Review of Systems: All systems reviewed and are unremarkable except as noted in HPI and below Denies fevers, chills, headache, nasal congestion, sore throat, cough, chest pain, shortness of breath, abdominal pain, nausea, vomiting, dysuria, hematuria, frequency, skin lesions or rashes. Physical Exam Physical Exam: General: Resting comfortably in his hospital bed. NAD. Neck: No JVD. Negative hepatojugular reflex Cardiac: RRR without M/G/R Lungs: CTA without W/R/R Abdomen: Normoactive X4. Soft and nontender in all quadrants. Extremities: Left upper extremity still with impressive cellulitic changes but overall improving. Area of erythema still at line of demarcation but seems to have some lacy appearance of a normal flesh colored skin around the lateral forearm. The area of erythema is not quite so hyperemic and the edema seems much improved. Circumferentially, forearm still measures 11 inches and the bicipital region still measures 13 inches. Right upper extremity (where previous IV was) has some surrounding erythema that is not raised. Looks consistent with infiltrated IV. It is not warm to touch. He does have a palpable cord along the ulnar aspect of the forearm. Is slightly tender to touch. Neuro: A&O X4 cranial nerves II through XII are grossly intact no focal neuro deficits Skin: No obvious skin lesions or rashes Results & Data Results & Data ([facility]) Vital Signs (Past 12 Hours) Vital Signs Temp Pulse Resp BP Pulse Ox 06/29/21 15:57 36.9 C 104 H 17 176/98 H 99 06/29/21 07:57 99 H 17 150/92 H 100 PG Care Time/CCT Total # of Minutes Spent Total Time Spent with Patient: Total time spent is greater than 50% in coordination of care (as documented) at patient's floor/unit and/or counseling patient: Coding [place] [address] Subseq Hosp Care Lvl 3 Patient Type Established History Detailed Exam Detailed Medical Decision Making High Complexity Diagnoses Cellulitis L03.90 Alcohol use Z72.89 Hypertension I10 Atrial fibrillation with rapid ventricular response I48.91 Hyponatremia E87.1 DVT prophylaxis Z29.9 Superficial vein thrombosis I82.890
[2021-06-29] MEDS: ASPIRIN 81 MG ECTAB PO SCH (20:44)
[2021-06-30] MEDS: ENOXAPARIN 80 MG/0.8 ML SYR SQ SCH ×2 (05:57→16:26)
[2021-06-30] MEDS: CEFEPIME 2,000 MG in SYRINGE 0 ML IV SCH (07:32)
[2021-06-30] MEDS: THIAMINE HCL 100 MG TAB PO SCH ×2 (07:45→20:19)
[2021-06-30] MEDS: CLINDAMYCIN 600 MG in DEXTROSE 5% 50 ML IV SCH ×3 (07:45→23:33)
[2021-06-30] MEDS: ADVANCED PROBIOTIC 1250 MG CAPSULE PO SCH ×2 (07:46→20:18)
[2021-06-30] MEDS: SACCHAROMYCES BOULARDII 250 MG CAP PO SCH (07:47)
[2021-06-30] MEDS: CEROVITE ADV FORMULA TAB PO SCH (07:47)
[2021-06-30] MEDS: FOLIC ACID 1 MG TAB PO SCH (07:47)
[2021-06-30] MEDS: SILVER SULFADIAZINE 1% CR 400 GM JAR EXT SCH ×2 (07:48→23:34)
[2021-06-30] MEDS ORDERED: VANCOMYCIN TROUGH ONE (08:30)
[2021-06-30 09:05] LABS: Basophils # (auto) 0.06 K/uL (0-0.2); Basophils % (auto) 0.7 %; Eosinophils # (auto) 0.44 K/uL (0-0.5); Eosinophils % (auto) 4.8 %; Hemoglobin 14.8 g/dL (14.0-18.0); Immature Granulocytes # (auto) 0.03 K/uL (0.00-0.02); Immature Granulocytes % (auto) 0.3 %; Lymphocytes # (auto) 1.17 K/uL (1.2-3.4); Lymphocytes % (auto) 12.8 %; Mean Corpuscular Hemoglobin 34.4 pg (25-34); Mean Corpuscular Hgb Conc 36.1 g/dL (32-36); Mean Corpuscular Volume 95.3 fL (80-100); Mean Platelet Volume 10.7 fL (7.4-10.4); Monocytes # (auto) 0.85 K/uL (0.11-0.59); Monocytes % (auto) 9.3 %; Neutrophils # (auto) 6.57 K/uL (1.4-6.5); Neutrophils % (auto) 72.1 %; Platelet Count 230 K/uL (130-400); RDW Coefficient of Variation 13.9 % (11.5-14.5); RDW Standard Deviation 48.1 fL (36.4-46.3); White Blood Count 9.12 K/uL (4.8-10.8)
[2021-06-30 09:34] LABS: BUN Creatinine Ratio 16.4 (10-20); Blood Urea Nitrogen 15 mg/dl (7-18); Calcium 9.5 mg/dl (8.5-10.1); Carbon Dioxide 25 mmol/L (21-32); Chloride 102 mmol/L (98-107); Creatinine Clr Calc Pharmacy 77.7 ml/min; Est GFR (African American) 99.2 ml/min; Est GFR (Non-African American) 85.6 ml/min; Glucose 92 mg/dl (70-99); Potassium 3.8 mmol/L (3.5-5.1); Sodium 132 mmol/L (136-145)
[2021-06-30 09:35] LABS: C Reactive Protein < 0.29 mg/dl (0-0.29)
--- NOTE | 2021-06-30 10:14 | Pharmacy Report ---
Pharmacy Abx Dose Short Note - Date of Service June 30, 2021 - Assessment & Plan Assessment 71 year old M receiving vancomycin, cefepime and clindamycin for treatment of LUE non purulent cellulitis * patient has received 5 days of IV antibiotics at this point * clindamycin was added on 06/28 due to lack of improvement on vanco + cefepime * pt afebrile, no leukocytosis, BC negative to date Plan Vancomycin * Trough level = 20.6 mcg/mL. Calculated AUC = 632. This is slightly above goal AUC of 400-600. * Will decrease to 1000 mg IV q12 hours. Predicted AUC = 513. * Additional drug level will be obtained with continuation of therapy/change in clinical status Pharmacy will continue to follow and will adjust dose/frequency as necessary. Thank you.
[2021-06-30] MEDS ORDERED: VANCOMYCIN HCL 1,000 MG in SODIUM CHLORIDE 0.9% 250 ML IV SCH (10:30)
[2021-06-30] MEDS: VANCOMYCIN HCL 1,250 MG in SODIUM CHLORIDE 0.9% 250 ML IV SCH (10:30)
[2021-06-30] MEDS: CIPROFLOXACIN / D5W 400 MG/200 ML BAG IV SCH (12:28)
[2021-06-30] MEDS: lisinopril 20 MG TAB PO SCH (16:25)
[2021-06-30] MEDS: VERAPAMIL HCL 120 MG TABCR PO SCH (16:25)
[2021-06-30] MEDS: VERAPAMIL HCL 180 MG TABCR PO SCH (16:26)
--- NOTE | 2021-06-30 16:26 | Hospitalist Progress Note ---
Date of Service June 30, 2021 Assessment & Plan (1) Cellulitis: Plan: LUE. overall continues to show favorable clinical response No purulent drainage. No abscess. No joint involvement. A wound culture was obtained ([facility])-reported as no growth per prior attending Continue with elevation given failed Tx to doxy/bactrim and current regimen of cefepime/vanco and now the addition of clinda-- I feel that since he is improving, we need to commit to Gram+/- coverage (including antipseudomonal) along with MRSA and anearobic coverage (despite no gas on imaging transition to cipro/clinda HUGE risk of C.Diff; however with inadequate treatment-- this can lead to tissue necrosis/bacteremia/sepsis/loss of limb and even if pt remains afebrile without leukocytosis and continued improvement with de- escalation in coverage, plan is to D/C to home tomorrow No evidence of fasciitis or compartment syndrome at present (2) Alcohol use: Plan: Continue thiamine BID, folate daily, and MVI daily. No signs/symptoms of etoh withdrawal at this time. Etoh withdrawal protocol with ativan prn. (3) Superficial vein thrombosis: Plan: - continue treatment with heat - treatment dose ACT while in house. Would not need upon D/C for this reason but patient considering (for his A.Fib) (4) Hypertension: Plan: Uncontrolled. Cont CORYE. Cont uptitrated dose of verapamil. Patient refuses metoprolol pt claims stress is playing a role to FU with PCP in the past (5) Atrial fibrillation with rapid ventricular response: Plan: Variable rate but has been in the 90s now. May have been slightly tachycardic given cellulitis Patient refuses metoprolol cont verapamil with uptitration for BP control CHADSVASc score is 3 -lengthy D/W patient regarding chronic AC and risk for stoke. He is consider Suspect he has permanent a.fib. 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 Sullivan. Further orders as warrented Admission and Anticipated Discharge Date Admission Date: June 25, 2021 Subjective Patient seen on daily rounds today. Overall, c/o anxiety of being in the hospital. Feels that this is contributing to his elevated BP's. He is stressed and ready to go home. Has not had any fevers. WBC has remained WNL. Remains on Cefepime/Vanco (therapeutic)/clinda. Repeat Doppler of the left arm done (as his right arm showed a superficial vein thrombosis that occurred in the setting of lovenox forprophylaxis). Repeat doppler of the left arm was negative for DVT Patient denies F/C, CP, SOB, abd pain, N/V. GI/ symptoms. In addition, no ETOH W/D symptoms has been demonstrated during this hospitalization (patient with chronic ETOH use). Review of Systems Review of Systems: All systems reviewed and are unremarkable except as noted in HPI and below Denies fevers, chills, headache, nasal congestion, sore throat, cough, chest pain, shortness of breath, abdominal pain, nausea, vomiting, dysuria, hematuria, frequency, skin lesions or rashes. Physical Exam Physical Exam: General: Resting comfortably in his hospital bed. NAD. Neck: No JVD. Negative hepatojugular reflex Cardiac: RRR without M/G/R Lungs: CTA without W/R/R Abdomen: Normoactive X4. Soft and nontender in all quadrants. Extremities: Left upper extremity with continued improvement. Area of erythema still receeding from line of demarcation with continued lacy appearance of a normal flesh colored skin around the lateral forearm. The area of erythema is not quite so hyperemic and the edema seems much improved. edema the same. skin try and flaking. RUE with improving area of erythema from superficial phlebitis/thrombosis Neuro: A&O X4 cranial nerves II through XII are grossly intact no focal neuro deficits Skin: see above. Results & Data Results & Data ([facility]) Vital Signs (Past 12 Hours) Vital Signs Temp Pulse Resp BP Pulse Ox 06/30/21 15:08 36.7 C 109 H 17 167/94 H 100 06/30/21 08:01 36.6 C 94 H 17 167/105 H 100 Laboratory Results 06/30/21 08:31 06/30/21 08:31 Diagnostic Findings 06/30/21 08:31 06/30/21 08:31 Esr: 8 CRP: <0.29 PG Care Time/CCT Total # of Minutes Spent Total Time Spent with Patient: Total time spent is greater than 50% in coordination of care (as documented) at patient's floor/unit and/or counseling patient: Coding [place] [address] Subseq Hosp Care Lvl 3 Patient Type Established History Detailed Exam Detailed Medical Decision Making High Complexity Diagnoses Cellulitis L03.90 Alcohol use Z72.89 Hypertension I10 Atrial fibrillation with rapid ventricular response I48.91 Hyponatremia E87.1 DVT prophylaxis Z29.9 Superficial vein thrombosis I82.890
[2021-06-30] MEDS: ASPIRIN 81 MG ECTAB PO SCH (20:18)
[2021-07-01] MEDS: CIPROFLOXACIN / D5W 400 MG/200 ML BAG IV SCH (00:05)
[2021-07-01] MEDS: ENOXAPARIN 80 MG/0.8 ML SYR SQ SCH (05:23)
[2021-07-01 07:05] LABS: Basophils # (auto) 0.04 K/uL (0-0.2); Basophils % (auto) 0.6 %; Eosinophils # (auto) 0.51 K/uL (0-0.5); Eosinophils % (auto) 7.7 %; Hematocrit (blood only) 38.8 % (42-52); Hemoglobin 13.6 g/dL (14.0-18.0); Immature Granulocytes # (auto) 0.01 K/uL (0.00-0.02); Immature Granulocytes % (auto) 0.2 %; Lymphocytes # (auto) 1.12 K/uL (1.2-3.4); Mean Corpuscular Hemoglobin 33.3 pg (25-34); Mean Corpuscular Hgb Conc 35.1 g/dL (32-36); Mean Corpuscular Volume 95.1 fL (80-100); Mean Platelet Volume 10.7 fL (7.4-10.4); Monocytes # (auto) 0.69 K/uL (0.11-0.59); Monocytes % (auto) 10.5 %; Neutrophils # (auto) 4.22 K/uL (1.4-6.5); Platelet Count 235 K/uL (130-400); RDW Coefficient of Variation 13.8 % (11.5-14.5); Red Blood Count 4.08 M/uL (4.7-6.1); White Blood Count 6.59 K/uL (4.8-10.8)
[2021-07-01 07:52] LABS: Creatinine Clr Calc Pharmacy 72.9 ml/min; Est GFR (African American) 91.8 ml/min; Est GFR (Non-African American) 79.2 ml/min
[2021-07-01] MEDS: ADVANCED PROBIOTIC 1250 MG CAPSULE PO SCH (08:08)
[2021-07-01] MEDS: SACCHAROMYCES BOULARDII 250 MG CAP PO SCH (08:08)
[2021-07-01] MEDS: CLINDAMYCIN 600 MG in DEXTROSE 5% 50 ML IV SCH (08:08)
[2021-07-01] MEDS: THIAMINE HCL 100 MG TAB PO SCH (08:08)
[2021-07-01] MEDS: FOLIC ACID 1 MG TAB PO SCH (08:08)
[2021-07-01] MEDS: CEROVITE ADV FORMULA TAB PO SCH (08:08)
[2021-07-01] MEDS ORDERED: CIPROFLOXACIN 500 MG TAB PO STA (09:01)
--- NOTE | 2021-07-01 10:01 | Discharge Summary ---
Date of Service July 01, 2021 Admission HPI Per Admitting Provider 71 YOM with past medical history: HTN, TICK bite, ETOH use, metabolic encephalopathy (2019), afib (on ASA). Patient comes to the emergency room today for worsening of his left arm cellulitis. Patient originally injured his arm with abrasions and ecchymosis after hitting it on the back of the chair on [id number]. Patient was keeping the area clean and dry and returned back to his PCP on 28July for erythema and increase in swelling to the hand. He was then started on Doxycyline and Bactrim as well as a wound culture obtained at that time. The erythema was tracking up his arm to just above the elbow, where it wa s marked by his PCP and may have slight extension past that today. His wound culture reported by the office has NGTD as the prelim. His hand he states started to swell [place] the [place] and getting a mosquito bite at that time. He endorses that this is not abnormal for him to have localized reaction like that to a bit. The hand has 3+ edema soft. In the EMD he had a venous ultrasound done to this arm which is negative for clot. He was started on Vancomycin and Cefepime in the EMD. Had blood cultures drawn. Hosptialist team was notified for admission. Patient will be admitted to medical floor and continue IV antibiotics and follow clinical course with cultures. X-rays ordered, CRP, ESR, and CKMB. Patient has had his COVID vaccine and COVID test is negative on admission. Admission Exam Per Admitting Provider PHYSICAL EXAM: General: awake, alert, no apparent distress Head: Normocephalic, atraumatic ENT: PERRL, EOMI, no pharyngeal exudate, mucous membranes moist Neuro: AAO x 3, speech clear and appropriate, strength intact bilaterally 5/5, sensation intact and equal all extremities and dermatomes, no pronator drift Chest: equal rise and fall of the chest, no accessory muscle use, no heaves or thrills, Clear to auscultation, on room air, Cardiac: irregular rate and rhythm, telemetry reviewed- afib, skin warm dry, cap refill <3 seconds on right hand and 3-4 seconds on left hand, peripheral pulses +2, no JVD, no murmur, no edema to lower extremities. GI: NABS x 4 quadrants, soft, nontender to palpation, no rebound, guarding or tenderness : Spontaneously voiding, no pain, no CVA tenderness, MSK/skin: left arm with full active and passive ROM, compartments soft, hand soft edema with full flexion and extension of hand, fingers, and wrist, pain is controlled, radial pulse 2+ ulnar pulse 2+, sensation intact to arm and hand. Brachial pulse strong and palpable, no pain with flexion and extension of elbow or with supination and pronation. Abrasions and ecchymosis to left top of the arm. Psych: Normal mood and affect Principal Diagnosis Working diagnoses: 1. Cellulitis of left upper extremity 2. Superficial vein thrombosis of right upper extremity 3. Leukocytosisresolved 4. Hyponatremialikely beer potomaniastable Chronic medical conditions: 1. Chronic atrial fibrillationnow on anticoagulation therapy for [id number] 2 score of 3 2. HTN 3. Chronic alcohol use Discharge Exam General: Resting comfortably in his hospital bed. NAD. Neck: No JVD. Negative hepatojugular reflex Cardiac: RRR without M/G/R Lungs: CTA without W/R/R Abdomen: Normoactive X4. Soft and nontender in all quadrants. Extremities: Left upper extremity with continued improvement. Area of erythema still receeding from line of demarcation with continued lacy appearance of a normal flesh colored skin around the lateral forearm. The area of erythema is not quite so hyperemic and the edema seems much improved. edema the same. skin try and flaking. RUE with improving area of erythema from superficial phlebitis/thrombosis Neuro: A&O X4 cranial nerves II through XII are grossly intact no focal neuro deficits Skin: see above. Discharge Data Allergies Allergy/AdvReac Type Severity Reaction Status Date / Time amlodipine Allergy RASH & Verified 06/25/21 08:53 SWOLLEN LEGS benazepril Allergy RASH & Verified 06/25/21 08:53 SWOLLEN LEGS--TAKES LISINOPRIL AT HOME Consultations 06/25/21 10:23 ED Decision to Admit Stat Ordered Studies 06/25/21 08:50 US venous doppler UE LT Stat IMPRESSION: No deep venous thrombus within the left upper extremity. X-ray left upper extremity (humerus and wrist) 06/25/21: No evidence of acute fracture or dislocation of the left ulna or radius. Evaluation is limited due to osteopenia. Severe degenerative process of the radiocarpal joint and questionable ossified fragment within soft tissue are seen. Further evaluation with dedicated radiograph of the left wrist is recommended. Diffuse soft tissue edema is seen. IMPRESSION: No acute fracture or dislocation. IMPRESSION: 1. Soft tissue swelling without acute fracture. 2. Osteoarthritis with chondrocalcinosis. MRI Left UE 06/28/21: IMPRESSION: 1. Extensive diffuse subcutaneous edema with associated skin thickening of the forearm is suggestive of cellulitis. Venous stasis or lymphedema could appear similarly. 2. No fluid collection or abnormal enhancement. 3. Severe radiocarpal osteoarthritis. 4. No acute fracture or osseous erosion. 06/29/21 10:25 US venous doppler UE Right Upper Extremity IMPRESSION: 1. No deep venous thrombus within the right upper extremity. 2. Superficial thrombus within the right basilic vein which extends for 8 cm in length. 06/29/21 15:00 US venous doppler UE Left Upper Extremity IMPRESSION: 1. There is no sonographic evidence of deep venous thrombosis identified in the left upper extremity. Hospital Course (1) Cellulitis of arm, left: LUE. overall continues to show favorable clinical response No purulent drainage. No abscess. No joint involvement. A wound culture was obtained ([facility]P [facility])-reported as no growth per prior attending Continue with elevation given failed Tx to doxy/bactrim and current regimen of cefepime/vanco and now the addition of clinda-- improving, we need to commit to Gram+/- coverage (including antipseudomonal) along with MRSA and anearobic coverage (despite no gas on imaging transition to ciprofloxacin 500mg BID and Clindamycin TID, complete 7 more days of each, follow up with PCP, may need longer course of antibiotics pt remains afebrile without leukocytosis and continued improvement with de- escalation in coverage No evidence of fasciitis or compartment syndrome at present (2) Alcohol use: Continue thiamine BID, folate daily, and MVI daily. No signs/symptoms of etoh withdrawal at this time. Etoh withdrawal protocol with ativan prn. (3) Superficial vein thrombosis: - continue treatment with heat - treatment dose ACT while in house. Would not need upon D/C for this reason but willing for his A.Fib (4) Atrial fibrillation, controlled: rates controlled started on Eliquis for stroke prevention (5) Hypertension: Uncontrolled. Cont COREY. Verapamil increased while in house-- BP remained elevated Patient refuses metoprolol pt claims stress is playing a role refuses any adjustment in medication FU with PCP (6) Atrial fibrillation with rapid ventricular response: Variable rate but has been in the 90s now. May have been slightly tachycardic given cellulitis Patient refuses metoprolol cont verapamil CHADSVASc score is 3 -lengthy D/W patient regarding chronic AC and risk for stoke. He is agreeable. STOP ASA Suspect he has permanent a.fib. 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 Sullivan. Further orders as warrented Total Time Total Time Spent Total Time Spent (In Minutes): 60 Discharge Plan Discharge Items Patient Disposition: Home - Self-Care Reason For Visit: CELLULITIS Discharge Diagnosis: 1. Cellulitis of the Left Upper Extremity 2. Superficial Vein thrombosis- Right upper extremity 3. Chronic Atrial Fibrillation- now on anticoagulation therapy 4. Hyponatremia- improved and stable. Likely from Alcohol use 5. Accelerated HTN- ? component of "White Coat Syndrome". Declines med adjustment 6. Leukocytosis- resolved Activity: As commented below Activity Comment: light activity. Keep Left upper extremity elevated as much as able Lifting: Gradually increase as tolerated Bathing: No limitations Bathing Comment: wash with soap and water. Pat dry Non-emergency contact: Primary Care Provider Call non-emergency contact if: you have any medication questions, your symptoms worsen, your pain is worsening and your wound has increased redness Follow-up/Referrals: Troy Rahman MD [Primary Care Provider] - 07/06/21 9:30 am Diet: Heart Healthy Addtl Attending Provider Instructions: - Please complete full course of antibiotic therapy --Cipro 500mg twice a day until complete (7 days) --Clindamycin 600mg 3x/day until complete (7 days) - Recommend probiotic (*Align- as discussed) to help minimize the risk of C.Diff - Recommend yogurt WITH LIVE CULTURES - wash arm with soap and water. Pat dry. Would advise Aquacel to the left arm for dryness - recommend moist heat to RIGHT arm given the superficial clot as discussed - stop Aspirin (as changed to Eliquis) for your A.Fib (to help reduced risk of stroke- as discussed) - follow up with your PCP: 7-10 days - return to the ED for: -- increased redness -- fever (>100.4) -- increased pain in the left arm -- increased swelling that doesn't improve with elevation -- as needed for medical emergency - follow up with PCP to discuss need for increased blood pressure medication Pending Studies at Discharge: No Stand-Alone Forms: My [facility] [employer], Smoking Cessation Medications and DC Order Prescriptions: New clindamycin HCl 300 mg capsule 600 mg PO Q8H 7 Days Qty: 42 RF: 0 ciprofloxacin HCl [Cipro] 500 mg tablet 500 mg PO Q12H 7 Days Qty: 13 RF: 0 Eliquis 5 mg tablet 5 mg PO BID Qty: 60 RF: 0 Continued ascorbic acid (vitamin C) 500 mg Capsule 500 mg PO BID RF: 0 multivitamin [Multiple Vitamins] Tablet 1 tab PO QAM RF: 0 glucosamine-chondroitin 1,500-1,200 mg/30 mL Liquid 1 dose PO BID RF: 0 [employer] [facility] [employer] 50 mg-15 unit- 4.5 mg-2.5 mg Tablet,Chewable 1 tab PO QAM RF: 0 lisinopril [Prinivil] 20 mg tablet 20 mg PO QDD RF: 0 verapamil [Verelan] 240 mg capsule,ext rel. pellets 24 hr 240 mg PO QDD RF: 0 Discontinued aspirin [Aspirin Low Dose] 81 mg Tablet,Delayed Release (Dr/Ec) 81 mg PO HS RF: 0 doxycycline hyclate [Vibramycin] 100 mg capsule 100 mg PO BID RF: 0 sulfamethoxazole-trimethoprim [Bactrim DS] 800-160 mg tablet 1 tab PO BID RF: 0 Discharge Orders: Discharge Order (Routine); Ordered 07/01/21 Ordered By: Yudith Cuevas/Other Patient Handouts: AFL/Afib, Discharge Instructions for Cellulitis, Stroke Prevent Live W Atrial Fib Admission Data Admit Date/Time: 06/25/21 11:04 Attending Provider: Heber Sullivan Admit Provider: Pawel Greenfield Primary Care Provider: Troy Rahman Other Providers: Pawel Greenfield Other Interventions: Discharge Summary Assessment (RN) Last Done: 07/01/21 09:48 Supervising Physician Co-Signing Physician Notes Patient seen and examined on the day of discharge. I agree with the discharge summary by Yudith LENTZ. I have reviewed the chart including labs, imaging and plans for discharge. patient's arm is slowly improving on IV antibiotics and remained improved after changing to Cipro and Clindamycin PO no DVT, no fasciitis found with imaging studies he is eating and drinking, no fever/chills, no dyspnea - Left upper extremity cellulitis, severe improved with Vancomycin, Cefepime, Clindamycin transition to Cipro BID and Clindamycin TID for 7 more days of each follow up with PCP, may need longer course depending on clinical response instructions provided on cleaning arm - Atrial fibrillation: rates variable but mostly controlled, continue Verapamil, refuses to consider metoprolol now on Eliquis BID for stroke prevention Coding Level of Care Code Established Pt D/C DAY MANAGEMENT >30 MINS Patient Type Established Diagnoses Alcohol use Z72.89 Superficial vein thrombosis I82.890 Hypertension I10 Atrial fibrillation with rapid ventricular response I48.91 Hyponatremia E87.1 DVT prophylaxis Z29.9 Cellulitis of arm, left L03.114 Atrial fibrillation, controlled I48.91 Time Spent (min) 60
== END 2021-07-01 11:38 | disposition home or self-care (01) | DRG 603 ==
LOC: ED 07:25 → 3W 11:04 → SUATTDRO 11:04 → 3W 15:12